=== PATIENT | male | born 1970 | race Caucasian/White ===

== ENCOUNTER → 2017-09-22 06:13 | Outpatient (CLI) | payer OTHER, SELFPAY ==
[2017-09-22 07:56] LABS: AST(SGOT) 56 U/L (15-37); Alanine Aminotransfer ALT/SGPT 107 U/L (16-61); Albumin, Serum 3.8 g/dL (3.2-5.0); Alkaline Phosphatase 81 U/L (45-117); Anion Gap 8 (5-15); BUN 20 mg/dL (7-18); BUN/Creat Ratio 16.5 RATIO (10-20); Calcium,Total 8.8 mg/dL (8.5-10.1); Chloride 108 mmol/L (98-107); Creatinine, Serum 1.21 mg/dL (0.70-1.30); EST Glomerular Filtration Rate 68 mL/min (>60); Est Glom Filt Rate - Afr Amer 82 mL/min (>60); Globulin 3.7 g/dL (2.2-4.2); Glucose 93 mg/dL (74-106); Prolactin 7.3 ng/mL; Protein, Total 7.5 g/dL (6.4-8.2); Sodium Level 144 mmol/L (136-145)
[2017-09-23 09:51] LABS: Vitamin D,25 Hydroxy 38.1 ng/mL (29.95-100.01)
[2017-09-25 20:08] LABS: Testosterone, Free 8.37 ng/dL (5.00-21.00)
[2017-09-28 12:51] LABS: Testosterone, % Free 3.11 % (1.50-4.20); Testosterone, Total 269 ng/dL (264-916)
== END ==
PROVIDERS: Family Provider Family Medicine; PCP Family Medicine; Visit Provider Internal Medicine Endocrinology, Diabetes & Metabolism
DX: E22.1 Hyperprolactinemia (principal); E55.9 Vitamin D deficiency, unspecified; E29.1 Testicular hypofunction
CPT/HCPCS: 36415; 80053; 82306; 84146; 84402; 84403

== ENCOUNTER → 2018-04-06 06:43 | Outpatient (CLI) | payer OTHER, SELFPAY ==
[2018-04-06 08:22] LABS: ALB/GLOB Ratio 0.9 RATIO (0.9-2.4); AST(SGOT) 72 U/L (15-37); Alanine Aminotransfer ALT/SGPT 136 U/L (16-61); Albumin, Serum 3.8 g/dL (3.2-5.0); Alkaline Phosphatase 78 U/L (45-117); Anion Gap 8 (5-15); BUN 18 mg/dL (7-18); BUN/Creat Ratio 15.1 RATIO (10-20); Calcium,Total 8.8 mg/dL (8.5-10.1); Chloride 106 mmol/L (98-107); Creatinine, Serum 1.19 mg/dL (0.70-1.30); EST Glomerular Filtration Rate 69 mL/min (>60); Est Glom Filt Rate - Afr Amer 83 mL/min (>60); Globulin 4.1 g/dL (2.2-4.2); Glucose 98 mg/dL (74-106); Potassium 4.2 mmol/L (3.5-5.1); Prolactin 12.1 ng/mL; Protein, Total 7.9 g/dL (6.4-8.2); Sodium Level 144 mmol/L (136-145); T4 Free Direct 0.89 ng/dL (0.76-1.46)
[2018-04-09 20:07] LABS: Testosterone, Free 10.57 ng/dL (5.00-21.00)
[2018-04-10 10:52] LABS: Testosterone, % Free 4.28 % (1.50-4.20); Testosterone, Total 247 ng/dL (264-916)
== END ==
PROVIDERS: Family Provider Family Medicine; PCP Family Medicine; Referring Provider Internal Medicine Endocrinology, Diabetes & Metabolism; Visit Provider Internal Medicine Endocrinology, Diabetes & Metabolism
DX: E22.1 Hyperprolactinemia (principal); R79.9 Abnormal finding of blood chemistry, unspecified; E29.1 Testicular hypofunction
CPT/HCPCS: 36415; 80053; 84146; 84402; 84403; 84439; 84443

== ENCOUNTER → 2018-11-05 10:14 | Outpatient (CLI) | payer OTHER, SELFPAY ==
[2017-12-11 16:04] VITALS: BMI 32.0
[2018-11-05 11:37] LABS: AST(SGOT) 53 U/L (15-37); Alanine Aminotransfer ALT/SGPT 104 U/L (16-61); Albumin, Serum 3.8 g/dL (3.2-5.0); Alkaline Phosphatase 92 U/L (45-117); Anion Gap 5 (5-15); BUN 16 mg/dL (7-18); BUN/Creat Ratio 14.2 RATIO (10-20); Calcium,Total 8.7 mg/dL (8.5-10.1); Chloride 106 mmol/L (98-107); Creatinine, Serum 1.13 mg/dL (0.70-1.30); EST Glomerular Filtration Rate 73 mL/min (>60); Est Glom Filt Rate - Afr Amer 88 mL/min (>60); Glucose 95 mg/dL (74-106); Potassium 4.1 mmol/L (3.5-5.1); Prolactin 12.4 ng/mL; Protein, Total 7.8 g/dL (6.4-8.2); Sodium Level 139 mmol/L (136-145); T4 Total, Thyroxin 7.5 ug/dL (4.5-12.1); Thyroid Stim Hormone (TSH) 0.95 uIU/mL (0.358-3.74)
[2018-11-10 09:07] LABS: Testosterone, Free 11.71 ng/dL (5.00-21.00)
[2018-11-10 11:04] LABS: Testosterone, % Free 3.97 % (1.50-4.20); Testosterone, Total 295 ng/dL (264-916)
== END ==
PROVIDERS: Family Provider Family Medicine; PCP Family Medicine; Referring Provider Internal Medicine Endocrinology, Diabetes & Metabolism; Visit Provider Internal Medicine Endocrinology, Diabetes & Metabolism
DX: E22.1 Hyperprolactinemia (principal); E29.1 Testicular hypofunction
CPT/HCPCS: 36415; 80053; 84146; 84402; 84403; 84436; 84443

== ENCOUNTER → 2019-06-10 06:34 | Outpatient (CLI) | payer OTHER, SELFPAY ==
[2017-12-11 16:04] VITALS: BMI 32.0
[2019-06-10 07:59] LABS: ALB/GLOB Ratio 0.9 RATIO (0.9-2.4); AST(SGOT) 60 U/L (15-37); Alanine Aminotransfer ALT/SGPT 126 U/L (16-61); Albumin, Serum 3.5 g/dL (3.2-5.0); Alkaline Phosphatase 82 U/L (45-117); Anion Gap 4 (5-15); BUN 14 mg/dL (7-18); BUN/Creat Ratio 11.1 RATIO (10-20); Chloride 105 mmol/L (98-107); Creatinine, Serum 1.26 mg/dL (0.70-1.30); EST Glomerular Filtration Rate 64 mL/min (>60); Est Glom Filt Rate - Afr Amer 78 mL/min (>60); Globulin 3.8 g/dL (2.2-4.2); Glucose 201 mg/dL (74-106); Potassium 4.2 mmol/L (3.5-5.1); Prolactin 7.6 ng/mL; Protein, Total 7.3 g/dL (6.4-8.2); Sodium Level 139 mmol/L (136-145); T4 Free Direct 0.79 ng/dL (0.76-1.46); Thyroid Stim Hormone (TSH) 1.56 uIU/mL (0.358-3.74)
== END ==
PROVIDERS: Family Provider Family Medicine; PCP Family Medicine; Referring Provider Internal Medicine Endocrinology, Diabetes & Metabolism; Visit Provider Internal Medicine Endocrinology, Diabetes & Metabolism
DX: E22.1 Hyperprolactinemia (principal); E04.2 Nontoxic multinodular goiter; D35.2 Benign neoplasm of pituitary gland; E83.42 Hypomagnesemia
CPT/HCPCS: 36415; 80053; 83735; 84146; 84439; 84443

== ENCOUNTER → 2020-01-23 06:45 | Outpatient (CLI) | payer OTHER, SELFPAY ==
[2017-12-11 16:04] VITALS: BMI 32.0
[2020-01-23 08:46] LABS: Vitamin D,25 Hydroxy 32.5 ng/mL
[2020-01-23 08:49] LABS: AST(SGOT) 37 U/L (15-37); Alanine Aminotransfer ALT/SGPT 80 U/L (16-61); Albumin, Serum 3.7 g/dL (3.2-5.0); Alkaline Phosphatase 82 U/L (45-117); Anion Gap 2 (5-15); BUN 17 mg/dL (7-18); BUN/Creat Ratio 13.3 RATIO (10-20); Calcium,Total 8.5 mg/dL (8.5-10.1); Chloride 108 mmol/L (98-107); Creatinine, Serum 1.28 mg/dL (0.70-1.30); EST Glomerular Filtration Rate 63 mL/min (>60); Est Glom Filt Rate - Afr Amer 76 mL/min (>60); Globulin 3.8 g/dL (2.2-4.2); Glucose 110 mg/dL (74-106); Potassium 3.9 mmol/L (3.5-5.1); Prolactin 12.3 ng/mL; Protein, Total 7.5 g/dL (6.4-8.2); Sodium Level 140 mmol/L (136-145)
[2020-01-23 08:51] LABS: Hemoglobin A1c 6.1 % (3.8-5.6)
== END ==
PROVIDERS: PCP Family Medicine; Referring Provider Internal Medicine Endocrinology, Diabetes & Metabolism; Visit Provider Internal Medicine Endocrinology, Diabetes & Metabolism
DX: E88.81 Metabolic syndrome and other insulin resistance (principal); Z71.3 Dietary counseling and surveillance; D35.2 Benign neoplasm of pituitary gland; E55.9 Vitamin D deficiency, unspecified; E22.1 Hyperprolactinemia
CPT/HCPCS: 36415; 80053; 82306; 83036; 84146

== ENCOUNTER → 2020-01-27 15:39 | Outpatient (CLI) | payer OTHER, SELFPAY ==
[2017-12-11 16:04] VITALS: BMI 32.0
== END ==
PROVIDERS: PCP Family Medicine; Referring Provider Family Medicine; Visit Provider Family Medicine
DX: Z20.828 Contact with and (suspected) exposure to other viral communicable diseases (principal)
CPT/HCPCS: 87635; U0003

== ENCOUNTER → 2020-02-20 08:19 | Outpatient (CLI) | payer OTHER, SELFPAY ==
[2017-12-11 16:04] VITALS: BMI 32.0
[2020-02-20 10:19] LABS: Anion Gap 3 (5-15); BUN 18 mg/dL (7-18); BUN/Creat Ratio 15.4 RATIO (10-20); Calcium,Total 8.8 mg/dL (8.5-10.1); Chloride 105 mmol/L (98-107); Cholesterol 158 mg/dL (200); Creatinine, Serum 1.17 mg/dL (0.70-1.30); EST Glomerular Filtration Rate 70 mL/min (>60); Est Glom Filt Rate - Afr Amer 84 mL/min (>60); Glucose 111 mg/dL (74-106); High Density Lipoprotein 37 mg/dL; Sodium Level 139 mmol/L (136-145); Triglycerides 151 mg/dL; Very Low Density Lipoprotein 30 mg/dL (5-40)
== END ==
PROVIDERS: PCP Family Medicine; Referring Provider Family Medicine; Visit Provider Family Medicine
DX: Z00.00 Encounter for general adult medical examination without abnormal findings (principal)
CPT/HCPCS: 36415; 80048; 80061

== ENCOUNTER → 2020-05-15 06:45 | Outpatient (CLI) | payer OTHER, SELFPAY ==
[2017-12-11 16:04] VITALS: BMI 32.0
[2020-05-15 07:55] LABS: AST(SGOT) 36 U/L (15-37); Alanine Aminotransfer ALT/SGPT 90 U/L (16-61); Albumin, Serum 3.8 g/dL (3.2-5.0); Alkaline Phosphatase 84 U/L (45-117); Anion Gap 6 (5-15); BUN 14 mg/dL (7-18); BUN/Creat Ratio 11.6 RATIO (10-20); Calcium,Total 8.8 mg/dL (8.5-10.1); Chloride 104 mmol/L (98-107); Creatinine, Serum 1.21 mg/dL (0.70-1.30); EST Glomerular Filtration Rate 67 mL/min (>60); Est Glom Filt Rate - Afr Amer 81 mL/min (>60); Glucose 114 mg/dL (74-106); Luteinizing Hormone 2.9 mIU/mL; Protein, Total 7.8 g/dL (6.4-8.2); Sodium Level 140 mmol/L (136-145); Thyroid Stim Hormone (TSH) 1.92 uIU/mL (0.358-3.74)
[2020-05-15 08:34] LABS: Insulin 21.4 mU/L (2.6-37.6)
[2020-05-18 12:07] LABS: Testosterone, Free 11.47 ng/dL (5.00-21.00)
[2020-05-18 12:52] LABS: Testosterone, % Free 4.36 % (1.50-4.20); Testosterone, Total 263 ng/dL (264-916)
== END ==
PROVIDERS: PCP Family Medicine; Referring Provider Internal Medicine Endocrinology, Diabetes & Metabolism; Visit Provider Internal Medicine Endocrinology, Diabetes & Metabolism
DX: E22.1 Hyperprolactinemia (principal); E04.9 Nontoxic goiter, unspecified; D35.2 Benign neoplasm of pituitary gland; E29.1 Testicular hypofunction
CPT/HCPCS: 36415; 80053; 83002; 83525; 84402; 84403; 84443

== ENCOUNTER → 2020-06-11 18:09 | Outpatient (CLI) | payer OTHER, SELFPAY ==
[2017-12-11 16:04] VITALS: BMI 32.0
== END ==
PROVIDERS: PCP Family Medicine; Referring Provider Family Medicine; Visit Provider Family Medicine
DX: U07.1 COVID-19 (principal)
CPT/HCPCS: 87635; U0005; U0003

== ENCOUNTER → 2020-08-27 06:43 | Outpatient (CLI) | payer OTHER, SELFPAY ==
[2020-08-27 07:51] LABS: AST(SGOT) 48 U/L (15-37); Alanine Aminotransfer ALT/SGPT 112 U/L (16-61); Albumin, Serum 3.8 g/dL (3.2-5.0); Alkaline Phosphatase 78 U/L (45-117); Anion Gap 3 (5-15); BUN 15 mg/dL (7-18); BUN/Creat Ratio 13.3 RATIO (10-20); Chloride 104 mmol/L (98-107); Creatinine, Serum 1.13 mg/dL (0.70-1.30); EST Glomerular Filtration Rate 72 mL/min (>60); Est Glom Filt Rate - Afr Amer 88 mL/min (>60); Globulin 3.7 g/dL (2.2-4.2); Glucose 131 mg/dL (74-106); Potassium 4.1 mmol/L (3.5-5.1); Prolactin 12.5 ng/mL; Protein, Total 7.5 g/dL (6.4-8.2); Sodium Level 137 mmol/L (136-145); T4 Free Direct 0.82 ng/dL (0.76-1.46); Thyroid Stim Hormone (TSH) 1.73 uIU/mL (0.358-3.74)
[2020-08-30 12:07] LABS: Testosterone, Free 13.32 ng/dL (5.00-21.00)
[2020-08-30 14:10] LABS: Testosterone, % Free 3.69 % (1.50-4.20); Testosterone, Total 361 ng/dL (264-916)
== END ==
PROVIDERS: PCP Family Medicine; Referring Provider Internal Medicine Endocrinology, Diabetes & Metabolism; Visit Provider Internal Medicine Endocrinology, Diabetes & Metabolism
DX: E22.1 Hyperprolactinemia (principal); E29.1 Testicular hypofunction
CPT/HCPCS: 36415; 80053; 84146; 84402; 84403; 84439; 84443

== ENCOUNTER → 2020-11-02 06:35 | Outpatient (CLI) | payer OTHER, SELFPAY ==
[2017-12-11 16:04] VITALS: BMI 32.0
[2020-11-02 08:42] LABS: Hemoglobin A1c 6.1 % (3.8-5.6)
[2020-11-02 08:46] LABS: Microalbumin,Random Urine 6.9 mg/L (NO RANGE EST.); Microalbumin:Creatinine Ratio 3.5 mg/g CRE (<30 mg/g CRE)
[2020-11-02 08:55] LABS: AST(SGOT) 40 U/L (15-37); Alanine Aminotransfer ALT/SGPT 87 U/L (16-61); Albumin, Serum 3.8 g/dL (3.2-5.0); Alkaline Phosphatase 83 U/L (45-117); Anion Gap 7 (5-15); BUN 22 mg/dL (7-18); BUN/Creat Ratio 19.3 RATIO (10-20); Calcium,Total 9.1 mg/dL (8.5-10.1); Chloride 101 mmol/L (98-107); Cholesterol 153 mg/dL (200); Creatinine, Serum 1.14 mg/dL (0.70-1.30); EST Glomerular Filtration Rate 72 mL/min (>60); Est Glom Filt Rate - Afr Amer 87 mL/min (>60); Globulin 3.9 g/dL (2.2-4.2); Glucose 93 mg/dL (74-106); High Density Lipoprotein 39 mg/dL; Potassium 3.7 mmol/L (3.5-5.1); Protein, Total 7.7 g/dL (6.4-8.2); Sodium Level 139 mmol/L (136-145); Triglycerides 157 mg/dL; Very Low Density Lipoprotein 31 mg/dL (5-40)
== END ==
PROVIDERS: Internal Medicine Endocrinology, Diabetes & Metabolism; PCP Family Medicine; Referring Provider Nurse Practitioner Adult Health; Visit Provider Nurse Practitioner Adult Health
DX: E11.65 Type 2 diabetes mellitus with hyperglycemia (principal)
CPT/HCPCS: 36415; 80053; 80061; 82043; 82570; 83036

== ENCOUNTER → 2021-01-08 06:45 | Outpatient (CLI) | payer OTHER, SELFPAY ==
[2017-12-11 16:04] VITALS: BMI 32.0
[2021-01-08 09:05] LABS: AST(SGOT) 34 U/L (15-37); Alanine Aminotransfer ALT/SGPT 72 U/L (16-61); Albumin, Serum 3.9 g/dL (3.2-5.0); Alkaline Phosphatase 84 U/L (45-117); Anion Gap 5 (5-15); BUN 17 mg/dL (7-18); BUN/Creat Ratio 15.6 RATIO (10-20); Chloride 104 mmol/L (98-107); Creatinine, Serum 1.09 mg/dL (0.70-1.30); EST Glomerular Filtration Rate 75 mL/min (>60); Est Glom Filt Rate - Afr Amer 91 mL/min (>60); Globulin 3.9 g/dL (2.2-4.2); Glucose 99 mg/dL (74-106); Potassium 3.9 mmol/L (3.5-5.1); Prolactin 13.1 ng/mL; Protein, Total 7.8 g/dL (6.4-8.2); Sodium Level 139 mmol/L (136-145)
[2021-01-14 03:06] LABS: Testosterone, Free 9.75 ng/dL (5.00-21.00)
[2021-01-14 08:46] LABS: Testosterone, % Free 3.93 % (1.50-4.20); Testosterone, Total 248 ng/dL (264-916)
== END ==
PROVIDERS: PCP Family Medicine; Referring Provider Internal Medicine Endocrinology, Diabetes & Metabolism; Visit Provider Internal Medicine Endocrinology, Diabetes & Metabolism
DX: E29.1 Testicular hypofunction (principal)
CPT/HCPCS: 36415; 80053; 84146; 84402; 84403

== ENCOUNTER → 2021-02-28 15:56 | Outpatient (CLI) | payer OTHER, SELFPAY ==
[2021-03-01 08:18] LABS: PSA,Total - Annual Screen < 4.00 ng/mL (0.00-4.00)
== END ==
PROVIDERS: PCP Family Medicine; Referring Provider Registered Nurse; Visit Provider Registered Nurse
DX: Z00.00 Encounter for general adult medical examination without abnormal findings (principal)
CPT/HCPCS: 36415; 84153; G0103

== ENCOUNTER → 2021-05-01 06:44 | Outpatient (CLI) | payer OTHER, SELFPAY ==
[2021-05-01 08:52] LABS: Hemoglobin A1c 6.1 % (3.8-5.6)
[2021-05-01 10:26] LABS: AST(SGOT) 39 U/L (15-37); Alanine Aminotransfer ALT/SGPT 84 U/L (16-61); Albumin, Serum 3.8 g/dL (3.2-5.0); Alkaline Phosphatase 83 U/L (45-117); Anion Gap 6 (5-15); BUN 17 mg/dL (7-18); BUN/Creat Ratio 14.4 RATIO (10-20); Calcium,Total 8.9 mg/dL (8.5-10.1); Chloride 104 mmol/L (98-107); Creatinine, Serum 1.18 mg/dL (0.70-1.30); EST Glomerular Filtration Rate 69 mL/min (>60); Est Glom Filt Rate - Afr Amer 83 mL/min (>60); Globulin 3.9 g/dL (2.2-4.2); Glucose 106 mg/dL (74-106); Luteinizing Hormone 3.4 mIU/mL; Magnesium 2.2 mg/dL (1.6-2.6); Potassium 4.1 mmol/L (3.5-5.1); Protein, Total 7.7 g/dL (6.4-8.2); Sodium Level 139 mmol/L (136-145)
[2021-05-05 17:07] LABS: Testosterone, Free 13.79 ng/dL (5.00-21.00)
[2021-05-06 08:58] LABS: Testosterone, % Free 4.96 % (1.50-4.20); Testosterone, Total 278 ng/dL (264-916)
== END ==
PROVIDERS: PCP Family Medicine; Referring Provider Internal Medicine Endocrinology, Diabetes & Metabolism; Visit Provider Internal Medicine Endocrinology, Diabetes & Metabolism
DX: E11.9 Type 2 diabetes mellitus without complications (principal); E29.1 Testicular hypofunction
CPT/HCPCS: 36415; 80053; 83002; 83036; 83735; 84402; 84403

== ENCOUNTER 2021-05-06 06:40 | Day surgery (SDC) | payer OTHER, SELFPAY ==
--- NOTE | 2021-05-06 | COLBX_PTH ---
PATIENT: LAURIE RIBEIRO LOC: EN U#:[id number] AGE/SX: 50/M ROOM: RE05/06/[address]: Dr. Christin Trevino MD : 1970 BED: DIS: 05/06/2021 SPEC #: [id number] RECD: 05/06/21 08:57 STATUS: SUNDAR REAlec #: [id number] CHERI: 05/06/21 00:[address]: Christin Trevino DEPT: SURGICAL PATHOLOGY RECD BY: Jose David Crawley ENTERED: 05/06/21 12:50 SP TYPE: COLON BX OTHR DR: Dr. Amanuel Aguilar MD Tissues: A - Ascending colon B - Transverse colon Procedures: Surgery Specimen Level IV HEADER OPERATION: Colonoscopy ? open access (MAC) PRE-OP DIAGNOSIS: Screening TISSUE SUBMITTED: A - Ascending polyp, B ? Transverse polyp biopsy MICROSCOPIC DIAGNOSIS A. Ascending colon polyp, biopsy: Tubular adenoma. B. Transverse colon polyp, biopsy: Tubular adenoma. AM:ady 05/07/2021 MICROSCOPIC DESCRIPTION Slides are reviewed. GROSS DESCRIPTION A - Received in fixative is one container labeled with the patient's name and designated ascending polyp biopsy. The specimen consists of multiple irregular fragments of light galicia soft tissue that in aggregate measure 1 x 0.2 x 0.1 cm. The specimen is totally submitted in one cassette. B - Received in fixative is one container labeled with the patient's name and designated transverse polyp biopsy. The specimen consists of one irregular fragment of light galicia soft tissue that measures 0.3 x 0.3 x 0.1 cm. The specimen is totally submitted in one cassette. / SJ:ady 05/06/21 TC:5 CPT: 09159 x2
[2021-05-06] MEDS: Lactated Ringers 1,000 ML 15 ML IV (06:50)
[2021-05-06 07:11] VITALS: BP 144/89; PULSE 82; RESP 16; TEMP 36.4; O2SAT 96; BMI 31.8
--- NOTE | 2021-05-06 07:11 | HP.PCM_ITS ---
HPI - General HPI Narrative LAURIE RIBEIRO, is a 50 M who presents for screening colonoscopy. Patient never had a previous colonoscopy. Patient's grandfather had colon cancer about age 60 no immediate relatives. Patient denies any chronic abdominal pain/nausea/vomiting/reflux. Patient does have bowel movements daily denies any blood. Patient does state he will does notice he has some hemorrhoids has not really had any issues with them recently in the past has had some itching-but patient states he is never had them looked at before. [facility] Medical History (Updated 05/06/21 @ 07:[address] Christin Trevino MD) Alcohol use Arthritis Back pain Benign neoplasm of pituitary gland Cardiology follow-up encounter CPAP (continuous positive airway pressure) dependence Diabetes Dietary restriction Fatty liver History of echocardiogram History of stress test Hx of pancreatitis Hyperprolactinemia Hypertension Hypogonadism Leg cramps Non-smoker Obesity Obstructive sleep apnea Paroxysmal atrial fibrillation Restless legs Wears glasses Home Medications calcium carbonate 500 mg calcium (1,250 mg) tablet 500 mg PO QDAY tab 11/27/17 [History Last Taken Unknown] cholecalciferol (vitamin D3) 125 mcg (5,000 unit) capsule 5,000 unit PO QDAY 11/27/17 [History Last Taken Unknown] magnesium oxide 500 mg capsule 500 mg PO QDAY cap 11/27/17 [History Last Taken Unknown] aspirin [Aspir-81] 81 mg PO DAILY 05/02/21 [History Last Taken Unknown] metformin 750 mg PO QPM 05/02/21 [History Last Taken Unknown] Allergy/AdvReac Type Severity Reaction Status Date / Time No Known Allergies Allergy Verified 05/02/21 15:41 Family History Father Heart disease Cancer prostate Mother Diabetes Cancer lung Surgical History (Updated 05/02/21 @ 15:49 by Aide Winston) Hx of cholecystectomy Social History Smoking Status: Never smoker Past Medical/Surgical History Planned Operation Planned Operative Procedure/s: CSCOPE OA S.O.S: No Previous Hospitalizations/Surgeries HX Hospitalizations: No Any Problems With Anesthesia: No You/Your Family Experience Fever (Hyperthermia) With Anes: No Cholinesterase deficiency: No Cardiovascular Hx Chest Pain within Last 2 months: No Hx of Irregular Heartbeat and/or Afib: Yes (A-FIB 04/25) Hx Heart Attack: No Hx Congestive Heart Failure: No Hx Rheumatic Fever: No Hx Hypertension: Yes (WITH PANCREATITIS 6 YRS AGO/RESOLVED AT THIS TIME/NO MEDS) Hx Internal Defibrillator: No Hx Pacemaker: No Hx Cardiac Catheterization: No Hx Cardiac Surgery/Stents/Etc.: No Hx Stress Test: No Hx Pain in Legs when Walking/Leg Cramps: Yes Respiratory Chronic Cough: No HX of Shortness of Breath: No Hoarseness: No Hx Chronic Obstructive Pulmonary Disease (COPD): No Hx Asthma: No Hx Emphysema: No Hx Sleep Apnea: Yes CPAP: Yes BIPAP: No Hx Respiratory Tract Infection/Cold (presently): No Result (for STOP score): Positive Hx Smoking: No Smoking Status: Never smoker Gastrointestinal Hx Gastroesophageal Reflux: No Hx Gastrointestinal Disorders: No Hx Gastrointestinal Bleed: No Hx Ulcer: No Hx Hiatal Hernia: No Difficulty Chewing/Swallowing: No Special diet followed at home: No Hx Unplanned Weight Loss of 20#: No HX Unplanned Weight Gain of 20#: No Neurological Hx Seizures: No HX Syncope/Blackout Spells/Unconsciousness: No Hx Transient Ischemic Attacks (TIA): No Hx Multiple Sclerosis: No Hx Parkinson's Disease: No Hx Head/Neck Injury: No Hx Headaches: No Hx Back Injury/Pain: Yes Recent Onset of Speech Difficulty: No Restless Legs: No Does patient have nerve stimulator: No Blood Disorder Hx Leukemia: No Bleeding Tendencies: No Hx Deep Vein Thrombosis: No Hx High Cholesterol: No Blood Transmitted Disease: No Hx Hepatitis: No Hx Cirrhosis: No Hx Anemia: No Hx Blood Disorders: No Reproduction : No Genitourinary Hx Renal Disease: No Musculoskeletal Hx Arthritis: No Hx Rheumatoid Arthritis: No Hx Gout: No Recent Onset of an Orthopedic Problem: No Endocrine Hx Diabetes: No Thyroid Disease: No Hx Steroid Therapy: No Psycho/Social Hx Substance Use: No Hx Alcohol Use: No Hx Anxiety: No Hx Depression: No Mental Illness: No Hx Dementia: No Miscellaneous Hx Cancer: No Recent Exposure to Contagious Disease: No Hx of C-Diff: No Any Loose Teeth: No Allergies No Known Allergies Allergy (Verified 05/02/21 15:41) Discharge Is Pt Admitted From a Alf, or a Care Home: No After D/C, Where Do you Plan to Go: Return Home Physical Exam Const alert, oriented x3 and no apparent distress HEENT normocephalic and head/scalp atraumatic Resp normal respiratory effort Cardio regular rate GI soft to palpation and non-tender; Negative for non-distended Palpation: Negative for guarding Extremity no clubbing, cyanosis or edema Neuro CN's II-XII intact bilaterally Psych mental status grossly normal Assessment & Plan Assessment/Plan (1) Screening for colon cancer: Procedure Criteria Type of Procedure Procedure Type: Elective Elective Risks - COVID COVID Risk Discussion: The surgeon/proceduralist and patient have discussed in detail the risk of exposure to and/or potential harm posed by the COVID-19 virus with having a surgery/procedure at this time versus the risk of delaying the surgery/procedure. It is not possible to know either the risk of delaying the surgery or procedure or chance of getting an infection with perfect accuracy, but a joint decision was made between the patient and the surgeon/proceduralist to proceed at this time with the scheduled surgery/procedure as indicated on the consent form. Surgery Risks - Colonoscopy Risks Include but are not Limited To: Risks include but are not limited to: Bleeding, perforation requiring further surgery, inability to complete colonoscopy requiring barium enema. Patient had no further questions this time.
[2021-05-06 08:05] LABS: Bedside Glucose 83 mg/dL (70-110)
[2021-05-06 08:40] VITALS: BP 131/82; BP 144/89; PULSE 67; RESP 16; TEMP 36.3; O2SAT 95
--- NOTE | 2021-05-06 08:43 | OP.COLON_ITS ---
Patient Name: Kev Almazan Procedure Date: 05/06/2021 8:07 AM Date of : 1970 Age: 50 Procedure: Colonoscopy Indications: Screening for colorectal malignant neoplasm Providers: Christin Trevino MD Medicines: Monitored Anesthesia Care Patient Profile: This is a 50 year old male. Last Colonoscopy: none. The patient's first colonoscopy is today. Complications: No immediate complications. Procedure: Pre-Anesthesia Assessment: - Prior to the procedure, a History and Physical was performed, and patient medications and allergies were reviewed. The patient's tolerance of previous anesthesia was also reviewed. The risks and benefits of the procedure and the sedation options and risks were discussed with the patient. All questions were answered, and informed consent was obtained. Prior Anticoagulants: The patient has taken no previous anticoagulant or antiplatelet agents. ASA Grade Assessment: Per anesthesia. After reviewing the risks and benefits, the patient was deemed in satisfactory condition to undergo the procedure. After I obtained informed consent, the scope was passed under direct vision. Throughout the procedure, the patient's blood pressure, pulse, and oxygen saturations were monitored continuously. The Colonoscope was introduced through the anus and advanced to the cecum, identified by appendiceal orifice and ileocecal valve. The colonoscopy was performed without difficulty. The patient tolerated the procedure well. The quality of the bowel preparation was good. Scope In: 8:15:53 AM Scope Withdrawal Time 0 hours 12 minutes 38 seconds Scope Out: 8:36:17 AM Total Procedure Duration Time 0 hours 20 minutes 24 seconds Findings: Hemorrhoids were found on perianal exam. Two sessile polyps were found in the transverse colon and ascending colon. The polyps were less than 5 mm in size. These polyps were removed with a cold biopsy forceps. Resection and retrieval were complete. External and internal hemorrhoids were found. The hemorrhoids were mild and Grade I (internal hemorrhoids that do not prolapse). Impression: - Hemorrhoids found on perianal exam. - Two less than 5 mm polyps in the transverse colon and in the ascending colon, removed with a cold biopsy forceps. Resected and retrieved. - External and internal hemorrhoids. Recommendation: - Repeat colonoscopy in 3 - 5 years for surveillance based on pathology results. - Discharge patient to home. - Resume previous diet. - Continue present medications. - Await pathology results. Procedure Code(s): --- Professional --- 60792, PT, Colonoscopy, flexible; with biopsy, single or multiple Diagnosis Code(s): --- Professional --- Z12.11, Encounter for screening for malignant neoplasm of colon K64.0, First degree hemorrhoids D12.3, Benign neoplasm of transverse colon (hepatic flexure or splenic flexure) D12.2, Benign neoplasm of ascending colon CPT copyright 2017 [employer]. All rights reserved. The codes documented in this report are preliminary and upon auto mechanic review may be revised to meet current compliance requirements. MD Christin Prabhakar MD 05/06/2021 8:42:47 AM This report has been signed electronically. Number of Addenda: 0 Note Initiated On: 05/06/2021 8:07 AM
--- NOTE | 2021-05-06 08:44 | OP.CCLET_ITS ---
05/06/2021 Amanuel Aguilar MD [address] [id number] Re : Colonoscopy procedure for Kev Almazan Dear Dr. Aguilar This procedure was performed on Thursday, May 06, 2021. My impressions and recommendations are as follows: Impressions : - Hemorrhoids found on perianal exam. - Two less than 5 mm polyps in the transverse colon and in the ascending colon, removed with a cold biopsy forceps. Resected and retrieved. - External and internal hemorrhoids. Recommendations : - Repeat colonoscopy in 3 - 5 years for surveillance based on pathology results. - Discharge patient to home. - Resume previous diet. - Continue present medications. - Await pathology results. My findings are described in the full procedure note, which is enclosed. If I can be of further assistance, please feel free to contact me at Doctor phone number(s): , Work: . Sincerely, MD Christin Prabhakar MD 05/06/2021 8:42:47 AM This report has been signed electronically.
[2021-05-06 08:45] VITALS: BP 133/77; BP 144/89; PULSE 67; RESP 16; O2SAT 94
[2021-05-06 08:50] VITALS: BP 135/83; BP 144/89; PULSE 64; RESP 16; O2SAT 94
[2021-05-06 08:55] VITALS: BP 131/79; BP 144/89; PULSE 65; RESP 16; TEMP 36.1; O2SAT 96
[2021-05-06 09:08] VITALS: BP 144/89
== END 2021-05-06 09:19 | disposition home or self-care (01) ==
LOC: EN 06:41 → AC 06:42
PROVIDERS: PCP Family Medicine; Referring Provider Family Medicine; Visit Provider Surgery
PROC: 0DJD8ZZ Inspection of Lower Intestinal Tract, Via Natural or Artificial Opening Endoscopic (ICD-10-PCS; CPT 45378; principal; 2021-05-06 08:10)
DX: Z12.11 Encounter for screening for malignant neoplasm of colon (principal); K64.0 First degree hemorrhoids; D12.3 Benign neoplasm of transverse colon; D12.2 Benign neoplasm of ascending colon; K64.4 Residual hemorrhoidal skin tags; Z80.0 Family history of malignant neoplasm of digestive organs; E11.9 Type 2 diabetes mellitus without complications; G47.33 Obstructive sleep apnea (adult) (pediatric); I48.0 Paroxysmal atrial fibrillation; I10 Essential (primary) hypertension; Z87.19 Personal history of other diseases of the digestive system; Z90.49 Acquired absence of other specified parts of digestive tract; G25.81 Restless legs syndrome; M19.90 Unspecified osteoarthritis, unspecified site; Z79.82 Long term (current) use of aspirin; Z79.84 Long term (current) use of oral hypoglycemic drugs
CPT/HCPCS: 45380; 82962; 87426; 88305; C9803; J7120; J2405

== ENCOUNTER 2021-07-30 07:49 | Outpatient (CLI) | payer OTHER, SELFPAY ==
--- NOTE | 2021-07-30 07:52 | ECHOD_ITS ---
Reason For Study: HTPERTENSION Procedure This was a 2D Doppler, Color Flow transthoracic echocardiogram. Exam performed in department. Left Ventricle Normal LV size. Left ventricular systolic function is normal. The estimated ejection fraction is 60 %. Stage 1 diastolic dysfunction. No regional wall motion abnormalities noted. Right Ventricle Normal RV size. Normal systolic function. Atria Normal left atrium. Normal right atrium. Mitral Valve Normal mitral valve. Tricuspid Valve Normal tricuspid valve. Mild tricuspid valve insufficiency. Pulmonary artery systolic pressure is 35 mmHg. Aortic Valve Normal aortic valve. Trisinus/trileaflet aortic valve. Pulmonic Valve Normal pulmonic valve. Great Vessels Normal aortic root. The pulmonary artery is normal size. Normal inferior vena cava. Pericardium/Pleural No pericardial effusion. MMode/2D Measurements & Calculations LVIDd: 4.1 cm IVSd: 0.97 cm Ao root diam: 3.0 cm LVIDs: 2.7 cm LVPWd: 0.93 cm RVDd: 4.0 cm FS: 33.4 % LAV(MOD-bp): 61.0 ml LA A4 area: 20.8 cm2 LA dimension(2D): 4.2 cm LAV(MOD-bp) Indexed: 24.0 ml/m2 LAV(MOD-sp2): 55.3 ml LAV(MOD-sp4): 60.0 ml RA A4 area: 13.6 cm2 Time Measurements MV dec time: 0.23 sec Doppler Measurements & Calculations MV E max ersnt: 76.4 cm/sec Lat Peak E' Ernst: 14.4 cm/sec Med Peak E' Ernst: 11.0 cm/sec MV A max ernst: 93.1 cm/sec E/E' lat: 5.3 E/E' med: 7.0 MV E/A: 0.82 Ao V2 max: 127.6 cm/sec LV V1 max: 105.0 cm/sec PA V2 max: 115.4 cm/sec Ao max P.5 mmHg LV V1 max P.4 mmHg TR max ernst: 279.7 cm/sec TR max P.3 mmHg ECHO/Echo Complete Interpretation Summary Normal LV size. Left ventricular systolic function is normal. The estimated ejection fraction is 60 %. Stage 1 diastolic dysfunction. Pulmonary artery systolic pressure is 35 mmHg. Ordering Physician: Benny Gore Referring Physician: Amanuel Aguilar Performed By: Tayler Lacey RDCS, RVT
== END 2021-07-30 23:59 | disposition home or self-care (01) ==
LOC: CVS 07:51
PROVIDERS: PCP Family Medicine; Referring Provider Internal Medicine Cardiovascular Disease; Visit Provider Internal Medicine Cardiovascular Disease
DX: I10 Essential (primary) hypertension (principal)
CPT/HCPCS: 93306

== ENCOUNTER 2021-08-19 06:44 | Outpatient (CLI) | payer OTHER, SELFPAY ==
[2021-08-19 08:37] LABS: AST(SGOT) 52 U/L (15-37); Alanine Aminotransfer ALT/SGPT 109 U/L (16-61); Albumin, Serum 3.9 g/dL (3.2-5.0); Alkaline Phosphatase 80 U/L (45-117); Anion Gap 4 (5-15); BUN 17 mg/dL (7-18); Calcium,Total 9.2 mg/dL (8.5-10.1); Chloride 103 mmol/L (98-107); Cholesterol 174 mg/dL (200); Creatinine, Serum 1.21 mg/dL (0.70-1.30); EST Glomerular Filtration Rate 67 mL/min (>60); Est Glom Filt Rate - Afr Amer 81 mL/min (>60); Globulin 3.8 g/dL (2.2-4.2); Glucose 116 mg/dL (74-106); High Density Lipoprotein 38 mg/dL; Potassium 4.1 mmol/L (3.5-5.1); Protein, Total 7.7 g/dL (6.4-8.2); Sodium Level 138 mmol/L (136-145); T4 Free Direct 0.91 ng/dL (0.76-1.46); Thyroid Stim Hormone (TSH) 2.41 uIU/mL (0.358-3.74); Triglycerides 221 mg/dL; Very Low Density Lipoprotein 44 mg/dL (5-40)
[2021-08-22 13:45] LABS: Testosterone Free 9.4 pg/mL (7.2-24.0)
== END 2021-08-19 23:59 | disposition home or self-care (01) ==
LOC: LAB 06:45
PROVIDERS: PCP Family Medicine; Referring Provider Internal Medicine Endocrinology, Diabetes & Metabolism; Visit Provider Internal Medicine Endocrinology, Diabetes & Metabolism
DX: E11.9 Type 2 diabetes mellitus without complications (principal); E22.1 Hyperprolactinemia; D35.2 Benign neoplasm of pituitary gland; E29.1 Testicular hypofunction
CPT/HCPCS: 36415; 80053; 80061; 83036; 84146; 84402; 84403; 84439; 84443

== ENCOUNTER → 2021-11-29 | Outpatient (CLI) | payer OTHER, SELFPAY ==
[2021-11-29 07:03] LABS: ALB/GLOB Ratio 0.9 RATIO (0.9-2.4); AST(SGOT) 50 U/L (15-37); Alanine Aminotransfer ALT/SGPT 111 U/L (16-61); Albumin, Serum 3.7 g/dL (3.2-5.0); Alkaline Phosphatase 78 U/L (45-117); Anion Gap 3 (5-15); BUN 19 mg/dL (7-18); BUN/Creat Ratio 15.2 RATIO (10-20); Calcium,Total 9.1 mg/dL (8.5-10.1); Chloride 106 mmol/L (98-107); Cholesterol 175 mg/dL (200); Creatinine, Serum 1.25 mg/dL (0.70-1.30); EST Glomerular Filtration Rate 64 mL/min (>60); Est Glom Filt Rate - Afr Amer 78 mL/min (>60); Globulin 3.9 g/dL (2.2-4.2); Glucose 110 mg/dL (74-106); High Density Lipoprotein 43 mg/dL; Protein, Total 7.6 g/dL (6.4-8.2); Sodium Level 139 mmol/L (136-145); Triglycerides 159 mg/dL; Very Low Density Lipoprotein 32 mg/dL (5-40)
[2021-11-29 07:43] LABS: Hemoglobin A1c 6.5 % (3.8-5.6)
== END | disposition home or self-care (01) ==
LOC: LAB 06:27
PROVIDERS: PCP Family Medicine; Visit Provider Internal Medicine Endocrinology, Diabetes & Metabolism
DX: E78.2 Mixed hyperlipidemia (principal); Z79.84 Long term (current) use of oral hypoglycemic drugs
CPT/HCPCS: 36415; 80053; 80061; 83036

== ENCOUNTER → 2022-01-09 | Outpatient (CLI) | payer OTHER, SELFPAY | END | disposition home or self-care (01) | LOC: LABSPEC 16:41 | PROVIDERS: PCP Family Medicine; Visit Provider Family Medicine | DX: U07.1 COVID-19 (principal) | CPT/HCPCS: 87635; U0003; U0005 ==

== ENCOUNTER → 2022-03-05 | Outpatient (CLI) | payer OTHER, SELFPAY ==
[2022-03-05 07:56] LABS: Hemoglobin A1c 6.8 % (3.8-5.6)
[2022-03-05 07:59] LABS: ALB/GLOB Ratio 0.9 RATIO (0.9-2.4); AST(SGOT) 42 U/L (15-37); Alanine Aminotransfer ALT/SGPT 94 U/L (16-61); Albumin, Serum 3.7 g/dL (3.2-5.0); Alkaline Phosphatase 78 U/L (45-117); Anion Gap 6 (5-15); BUN 17 mg/dL (7-18); BUN/Creat Ratio 15.2 RATIO (10-20); Calcium,Total 9.2 mg/dL (8.5-10.1); Chloride 103 mmol/L (98-107); Creatinine, Serum 1.12 mg/dL (0.70-1.30); EST Glomerular Filtration Rate 73 mL/min (>60); Est Glom Filt Rate - Afr Amer 88 mL/min (>60); Glucose 125 mg/dL (74-106); Potassium 3.9 mmol/L (3.5-5.1); Protein, Total 7.7 g/dL (6.4-8.2); Sodium Level 140 mmol/L (136-145)
== END | disposition home or self-care (01) ==
LOC: LAB 06:44
PROVIDERS: PCP Family Medicine; Visit Provider Internal Medicine Endocrinology, Diabetes & Metabolism
DX: Z79.84 Long term (current) use of oral hypoglycemic drugs (principal)
CPT/HCPCS: 36415; 80053; 83036

== ENCOUNTER → 2022-06-27 | Outpatient (CLI) | payer OTHER, SELFPAY ==
[2022-06-27 07:48] LABS: Hemoglobin A1c 6.3 % (3.8-5.6)
[2022-06-27 07:51] LABS: Microalbumin,Random Urine 9.1 mg/L (NO RANGE EST.); Microalbumin:Creatinine Ratio 5.2 mg/g CRE (<30 mg/g CRE)
[2022-06-27 08:02] LABS: ALB/GLOB Ratio 0.9 RATIO (0.9-2.4); AST(SGOT) 37 U/L (15-37); Alanine Aminotransfer ALT/SGPT 83 U/L (16-61); Albumin, Serum 3.7 g/dL (3.2-5.0); Alkaline Phosphatase 79 U/L (45-117); Anion Gap 6 (5-15); BUN 20 mg/dL (7-18); BUN/Creat Ratio 17.4 RATIO (10-20); Calcium,Total 8.9 mg/dL (8.5-10.1); Chloride 106 mmol/L (98-107); Cholesterol 160 mg/dL (200); Creatinine, Serum 1.15 mg/dL (0.70-1.30); EST Glomerular Filtration Rate 70 mL/min (>60); Est Glom Filt Rate - Afr Amer 85 mL/min (>60); Globulin 3.9 g/dL (2.2-4.2); Glucose 122 mg/dL (74-106); High Density Lipoprotein 39 mg/dL; Potassium 3.9 mmol/L (3.5-5.1); Prolactin 11.9 ng/mL; Protein, Total 7.6 g/dL (6.4-8.2); Sodium Level 142 mmol/L (136-145); Thyroid Stim Hormone (TSH) 1.33 uIU/mL (0.358-3.74); Triglycerides 141 mg/dL; Very Low Density Lipoprotein 28 mg/dL (5-40)
[2022-07-02 13:07] LABS: Testosterone, Free 10.78 ng/dL (5.00-21.00)
[2022-07-02 16:46] LABS: Testosterone, % Free 3.58 % (1.50-4.20); Testosterone, Total 301 ng/dL (264-916)
== END | disposition home or self-care (01) ==
PROVIDERS: PCP Family Medicine; Referring Provider Internal Medicine Endocrinology, Diabetes & Metabolism; Visit Provider Internal Medicine Endocrinology, Diabetes & Metabolism
DX: E78.2 Mixed hyperlipidemia (principal); Z79.84 Long term (current) use of oral hypoglycemic drugs; E04.2 Nontoxic multinodular goiter; E55.9 Vitamin D deficiency, unspecified
CPT/HCPCS: 36415; 80053; 80061; 82043; 82306; 82570; 83036; 84146; 84402; 84403; 84443

== ENCOUNTER → 2023-02-24 | Outpatient (CLI) | payer OTHER, SELFPAY ==
[2023-02-24 08:06] LABS: ALB/GLOB Ratio 0.9 RATIO (0.9-2.4); AST(SGOT) 28 U/L (15-37); Alanine Aminotransfer ALT/SGPT 78 U/L (16-61); Albumin, Serum 3.6 g/dL (3.2-5.0); Alkaline Phosphatase 82 U/L (45-117); Anion Gap 5 (5-15); BUN 17 mg/dL (7-18); Calcium,Total 8.8 mg/dL (8.5-10.1); Chloride 106 mmol/L (98-107); Creatinine, Serum 1.13 mg/dL (0.70-1.30); EST Glomerular Filtration Rate 72 mL/min (>60); Est Glom Filt Rate - Afr Amer 87 mL/min (>60); Globulin 3.9 g/dL (2.2-4.2); Glucose 138 mg/dL (74-106); Potassium 3.9 mmol/L (3.5-5.1); Protein, Total 7.5 g/dL (6.4-8.2); Sodium Level 140 mmol/L (136-145); Thyroid Stim Hormone (TSH) 1.91 uIU/mL (0.358-3.74)
== END | disposition home or self-care (01) ==
LOC: LAB 06:37
PROVIDERS: PCP Family Medicine; Referring Provider Internal Medicine Endocrinology, Diabetes & Metabolism; Visit Provider Internal Medicine Endocrinology, Diabetes & Metabolism
DX: Z79.84 Long term (current) use of oral hypoglycemic drugs (principal); E04.2 Nontoxic multinodular goiter
CPT/HCPCS: 36415; 80053; 83036; 84443

== ENCOUNTER → 2023-03-12 | Outpatient (CLI) | payer OTHER, SELFPAY ==
[2023-03-12 07:49] LABS: Cholesterol 159 mg/dL (200); High Density Lipoprotein 42 mg/dL; Triglycerides 155 mg/dL; Very Low Density Lipoprotein 31 mg/dL (5-40)
== END | disposition home or self-care (01) ==
LOC: LAB 06:43
PROVIDERS: PCP Family Medicine; Referring Provider Family Medicine; Visit Provider Family Medicine
DX: Z00.00 Encounter for general adult medical examination without abnormal findings (principal)
CPT/HCPCS: 36415; 80061

== ENCOUNTER → 2023-07-14 | Outpatient (CLI) | payer OTHER, SELFPAY ==
--- OUTSIDE RECORDS SUMMARY | 2023-07-14 06:16 | XMS RPT_ITS | CCD ---
Author Name Unknown Address [address] [place], [place] [id number] Organization [facility] Care Team Providers Care Machine Sign Writer Name Role Phone Nhung Soto Unavailable Unavailable Ashia Mcfarland Unavailable Unavailable Ashia Mcfarland Unavailable Unavailable Medications Completed/Discontinued Medications Medication Drug Class(es) Dates Sig (Normalized) Sig (Original) cabergoline 0.5 mg oral tablet (3 sources) Ergot Derivative CABERGOLINE 0.5 MG TABS one tab per month CABERGOLINE [id number] [place] calcium (1 source) Phosphate Binder, Calcium take 1 tablet by mouth once daily CALCIUM 1200 7911-0708 MG-UNIT CHEW One tablet by mouth daily CALCIUM CARBONATE-VIT D-MIN [id number] [place] CALCIUM CARBONATE-VIT D-MIN (2 sources) take 1 tablet by mouth once daily CALCIUM 1200 7453-6181 MG-UNIT CHEW One tablet by mouth daily CALCIUM CARBONATE-VIT D-MIN [id number] [place] cholecalciferol 5000 unt oral capsule (3 sources) Vitamin D take 1 tablet by mouth once daily VITAMIN D3 5000 UNIT CAPS One tablet by mouth daily CHOLECALCIFEROL 95242406019 [place] 24 hr dilTIAZem hydrochloride 240 mg extended release oral capsule (6 sources) Calcium Channel Julienne End: 05-29-2016 take 1 tablet by mouth once daily DILTIAZEM CD 240 MG [id number] One tablet by mouth daily DILTIAZEM HCL COATED BEADS [id number] [place] magnesium oxide 500 mg oral tablet (3 sources) take 1 tablet by mouth once daily MAGNESIUM OXIDE 500 MG TABS One tablet by mouth daily MAGNESIUM OXIDE [id number] [place] metoprolol tartrate 50 mg oral tablet (3 sources) beta-Adrenergic Julienne take 1 tablet by mouth twice daily METOPROLOL TARTRATE 50 MG TABS One tablet by mouth twice daily METOPROLOL TARTRATE [id number] Shekhar Castle MD Problems Active Problems Problem Classification Problem Date Documented Date Episodic/Chronic Cardiac dysrhythmias (6 sources) Paroxysmal atrial fibrillation; Translations: [Atrial fibrillation] Onset: 05-15-2016 05-15-2016 Chronic Essential hypertension (3 sources) Hypertensive disorder; Translations: [Essential (primary) hypertension] 05-06-2016 Chronic Other liver diseases (3 sources) Steatosis of liver; Translations: [Fatty (change of) liver, not elsewhere classified] Onset: 05-06-2016 05-06-2016 Chronic Unclassified (3 sources) Sleep apnea; Translations: [Sleep apnea, unspecified] Onset: 05-06-2016 05-06-2016 Chronic Unclassified (1 source) Laparoscopic cholecystectomy ; Translations: [Acquired absence of other specified parts of digestive tract] Onset: 06-12-2016 06-12-2016 Past or Other Problems Problem Classification Problem Date Documented Date Episodic/Chronic Biliary tract disease (3 sources) Gallstone; Translations: [Calculus of gallbladder without cholecystitis without obstruction] Onset: 05-06-2016 05-06-2016 Episodic Other lower respiratory disease (3 sources) Snoring; Translations: [Snoring] Onset: 05-15-2016 05-15-2016 Episodic Other nutritional; endocrine; and metabolic disorders (3 sources) Body mass index (BMI) 29.0-29.9, adult; Translations: [Body mass index (BMI) 29.0-29.9, adult] Onset: 05-15-2016 05-15-2016 Episodic Pancreatic disorders (3 sources) Gallstone pancreatitis; Translations: [Biliary acute pancreatitis] Onset: 05-06-2016 05-06-2016 Episodic Results Test Name Value Interpretation Reference Range Facil ity Vital Signs Date Time Vital Sign Value Performing Clinician Jc tan 11-11-2016 11:21-0400 BP Diastolic 70 mm[Hg] [facility] Work Phone: 11-11-2016 11:21-0400 BP Systolic 124 mm[Hg] [facility] Work Phone: 11-11-2016 11:21-0400 Pulse (Heart Rate) 72 /min [facility] Work Phone: 11-11-2016 11:21-0400 Respiratory Rate 18 /min Ashia Mcfarland [facility] Work Phone: 07-10-2016 09:06-0500 BMI (Body Mass Index) 28.93 kg/m2 Harhayley DeFinis [facility] Work Phone: 07-10-2016 09:06-0500 Body Temperature 98.1 [degF] Harumi DeFinis [facility] Work Phone: 07-10-2016 09:06-0500 BP Diastolic 86 mm[Hg] Harumi DeFinis [facility] Work Phone: 07-10-2016 09:06-0500 BP Systolic 123 mm[Hg] Harumi DeFinis [facility] Work Phone: 07-10-2016 09:06-0500 BSA (Body Surface Area) 2.44 m2 Harumi DeFinis [facility] Work Phone: 07-10-2016 09:06-0500 Height 195.58 cm Harumi DeFinis [facility] Work Phone: 07-10-2016 09:06-0500 Pulse (Heart Rate) 74 /min Harumi DeFinis [facility] Work Phone: 07-10-2016 09:06-0500 Pulse Oximetry 98 % Harumi DeFinis [facility] Work Phone: 07-10-2016 09:06-0500 Respiratory Rate 16 /min Harumi DeFinis [facility] Work Phone: 07-10-2016 09:06-0500 Weight 110.68 kg Harumi DeFinis [facility] Work Phone: 07-10-2016 09:06-0500 Weight 110.91 kg Harumi DeFinis [facility] Work Phone: 06-12-2016 09:00-0500 Body Temperature 98.01 [degF] Harumi DeFinis [facility] Work Phone: 05-15-2016 13:25-0500 Height 195.58 cm Harumi DeFinis [facility] Work Phone: Procedures Date Procedure Procedure Detail Performing Clinician Start: 07-10-2016 End: 07-10-2016 Dietary management education, guidance, and counseling Ashia Mcfarland Start: 06-12-2016 End: 06-12-2016 Follow Up Appt 2 weeks Christin Trevino MD Work Phone: Start: 06-12-2016 Laparoscopic cholecystectomy S/P laparoscopic cholecystectomy Ashia Mcfarland Start: 05-15-2016 End: 05-15-2016 *Hepatic Function Panel Shekhar Castle MD Work Phone: Start: 05-15-2016 End: 10-30-2016 DJN Shekhar Castle MD Work Phone: Start: 05-15-2016 End: 10-30-2016 Follow Up Appt 6 months Shekhar Castle MD Work Phone: Start: 05-15-2016 End: 05-15-2016 Lipid panel [AGGREGATE] Shekhar Castle MD Work Phone: Start: 05-15-2016 End: 05-21-2016 Stress Echocardiogram (treadmill) Shekhar Castle MD Work Phone: Start: 05-07-2016 End: 05-12-2016 *CBC with Differential Christin Trevino MD Work Phone: Start: 05-06-2016 End: 05-07-2016 *Hepatic Function Panel Christin velez MD Work Phone: Start: 05-06-2016 End: 05-06-2016 Follow Up Appt Other Christin Roberts Work Phone: Plan of Treatment Date Care Activity Detail Author Start: 11-09-2017 End: 11-09-2017 Appointment Appointment [facility] Work Phone: Start: 05-15-2017 End: 05-16-2016 *Hepatic Function Panel *Hepatic Function Panel [facility] Work Phone: Start: 05-15-2017 End: 05-16-2016 Lipid panel [AGGREGATE] *Lipid Profile CC PCP [facility] Work Phone: Start: 11-11-2016 End: 11-11-2016 Appointment Appointment [facility] Work Phone: Start: 11-11-2016 End: 11-11-2016 RANDA TOLENTINO [facility] Work Phone: Start: 11-11-2016 End: 11-11-2016 Follow Up Appt 1 year Follow Up Appt 1 year [facility] Work Phone: Start: 07-10-2016 End: 07-10-2016 Follow-up visit Follow Up as needed [facility] Work Phone: Start: 07-10-2016 End: 07-10-2016 Primary Care Physician Primary Care Physician Amanuel Mo MD, [facility], [address], [place], [address] [facility] Work Phone: Start: 06-26-2016 End: 06-26-2016 Follow Up Appt 2 weeks Follow Up Appt 2 weeks [facility] Work Phone: Start: 06-26-2016 End: 08-01-2016 Primary Care Physician Primary Care Physician Amanuel Mo MD, [facility], [address], [place], [address] [facility] Work Phone: Start: 06-12-2016 End: 06-12-2016 Follow Up Appt 2 weeks Follow Up Appt 2 weeks [facility] Work Phone: Start: 05-15-2016 End: 05-15-2016 *Hepatic Function Panel *Hepatic Function Panel [facility] Work Phone: Start: 05-15-2016 End: 10-30-2016 RANDA TOLENTINO [facility] Work Phone: Start: 05-15-2016 End: 10-30-2016 Follow Up Appt 6 months Follow Up Appt 6 months [facility] Work Phone: Start: 05-15-2016 End: 05-15-2016 Lipid panel [AGGREGATE] *Lipid Profile CC PCP [facility] Work Phone: Start: 05-15-2016 End: 05-15-2016 Stress Echocardiogram (treadmill) Stress Echocardiogram (treadmill) [facility] Work Phone: Start: 05-07-2016 End: 05-12-2016 *CBC with Differential *CBC with Differential [facility] Work Phone: Start: 05-06-2016 End: 05-07-2016 *Hepatic Function Panel *Hepatic Function Panel [employer] Work Phone: Start: 05-06-2016 End: 05-06-2016 Follow Up Appt Other Follow Up Appt Other [facility] Work Phone: Patient Education HEART%20HEALTHY%20DIET [facility] Work Phone: Additional Source Comments FOR RECORDS PERTAINING TO PATIENTS WHO ARE OR HAVE BEEN ENROLLED IN A CHEMICAL DEPENDENCY/SUBSTANCEABUSE PROGRAM, SOME INFORMATION MAY BE OMITTED. This clinical summary was aggregated from multiple sources. Caution should be exercised in using it in the provision of clinical care. This summary normalizes information from multiple sources, and as a consequence, information in this document may materially change the coding, format and clinical context of patient data. In addition, data may be omitted in some cases. CLINICAL DECISIONS SHOULD BE BASED ON THE PRIMARY CLINICAL RECORDS. [employer] [facility]. provides no warranty or guarantee of the accuracy or completeness of information in this document.
[2023-07-14 07:18] LABS: ALB/GLOB Ratio 0.9 RATIO (0.9-2.4); AST(SGOT) 35 U/L (15-37); Alanine Aminotransfer ALT/SGPT 76 U/L (16-61); Albumin, Serum 3.6 g/dL (3.2-5.0); Alkaline Phosphatase 89 U/L (45-117); Anion Gap 5 (5-15); BUN 18 mg/dL (7-18); BUN/Creat Ratio 16.7 RATIO (10-20); Chloride 109 mmol/L (98-107); Cholesterol 172 mg/dL (200); Creatinine, Serum 1.08 mg/dL (0.70-1.30); EST Glomerular Filtration Rate 75 mL/min (>60); Est Glom Filt Rate - Afr Amer 91 mL/min (>60); Globulin 3.8 g/dL (2.2-4.2); Glucose 146 mg/dL (74-106); High Density Lipoprotein 40 mg/dL; Potassium 4.3 mmol/L (3.5-5.1); Protein, Total 7.4 g/dL (6.4-8.2); Sodium Level 143 mmol/L (136-145); Triglycerides 186 mg/dL; Very Low Density Lipoprotein 37 mg/dL (5-40)
[2023-07-14 08:33] LABS: Hemoglobin A1c 6.8 % (3.8-5.6)
[2023-07-14 11:48] LABS: Microalbumin,Random Urine 7.7 mg/L (NO RANGE EST.); Microalbumin:Creatinine Ratio 5.2 mg/g CRE (<30 mg/g CRE)
== END | disposition home or self-care (01) ==
LOC: LAB 06:15
PROVIDERS: PCP Family Medicine; Referring Provider Internal Medicine Endocrinology, Diabetes & Metabolism; Visit Provider Internal Medicine Endocrinology, Diabetes & Metabolism
DX: E11.65 Type 2 diabetes mellitus with hyperglycemia (principal); E78.2 Mixed hyperlipidemia
CPT/HCPCS: 36415; 80053; 80061; 82043; 82570; 83036

== ENCOUNTER → 2023-08-06 | Outpatient (CLI) | payer OTHER, SELFPAY ==
--- OUTSIDE RECORDS SUMMARY | 2023-08-06 06:44 | XMS RPT_ITS | CCD ---
Author Name Unknown Address [address] [place], [place] [id number] Organization [facility] Care Team Providers Care Build Master Name Role Phone Nhung Soto Unavailable Unavailable Ashia Mcfarland Unavailable Unavailable Ashia Mcfarland Unavailable Unavailable Medications Completed/Discontinued Medications Medication Drug Class(es) Dates Sig (Normalized) Sig (Original) cabergoline 0.5 mg oral tablet (3 sources) Ergot Derivative CABERGOLINE 0.5 MG TABS one tab per month CABERGOLINE [id number] [place] calcium (1 source) Phosphate Binder, Calcium take 1 tablet by mouth once daily CALCIUM 1200 0306-3109 MG-UNIT CHEW One tablet by mouth daily CALCIUM CARBONATE-VIT D-MIN [id number] [place] CALCIUM CARBONATE-VIT D-MIN (2 sources) take 1 tablet by mouth once daily CALCIUM 1200 1294-4980 MG-UNIT CHEW One tablet by mouth daily CALCIUM CARBONATE-VIT D-MIN [id number] [place] cholecalciferol 5000 unt oral capsule (3 sources) Vitamin D take 1 tablet by mouth once daily VITAMIN D3 5000 UNIT CAPS One tablet by mouth daily CHOLECALCIFEROL [id number] [place] 24 hr dilTIAZem hydrochloride 240 mg extended release oral capsule (6 sources) Calcium Channel Julienne End: 05-29-2016 take 1 tablet by mouth once daily DILTIAZEM CD 240 MG [id number] One tablet by mouth daily DILTIAZEM HCL COATED BEADS 12089245041 [place] magnesium oxide 500 mg oral tablet (3 sources) take 1 tablet by mouth once daily MAGNESIUM OXIDE 500 MG TABS One tablet by mouth daily MAGNESIUM OXIDE 60893135489 [place] metoprolol tartrate 50 mg oral tablet (3 sources) beta-Adrenergic Julienne take 1 tablet by mouth twice daily METOPROLOL TARTRATE 50 MG TABS One tablet by mouth twice daily METOPROLOL TARTRATE [id number] Shekhar Castle MD Problems Active Problems Problem [...] tan 11-11-2016 11:21-0400 BP Diastolic 70 mm[Hg] [facility] Work Phone: 11-11-2016 11:21-0400 BP Systolic 124 mm[Hg] [facility] Work Phone: 11-11-2016 11:21-0400 Pulse (Heart Rate) 72 /min [facility] Work Phone: 11-11-2016 11:21-0400 Respiratory Rate 18 /min Ashia Mcfarland [facility] Work Phone: 07-10-2016 09:06-0500 BMI (Body Mass Index) 28.93 kg/m2 Harhayley DeFinis [facility] Work Phone: 07-10-2016 09:06-0500 Body Temperature 98.1 [degF] Harumi DeFinis [facility] Work Phone: 07-10-2016 09:06-0500 BP Diastolic 86 mm[Hg] Harumi DeFinis [facility] Work Phone: 07-10-2016 09:06-0500 BP Systolic 123 mm[Hg] Harumi DeFinis [facility] Work Phone: 07-10-2016 09:06-0500 BSA (Body Surface Area) 2.44 m2 Harumi DeFinis [facility] Work Phone: 07-10-2016 09:06-0500 Height 195.58 cm Harumi DeFinis [facility] Work Phone: 07-10-2016 09:06-0500 Pulse (Heart Rate) 74 /min Harumi DeFinis [facility] Work Phone: 07-10-2016 09:06-0500 Pulse Oximetry 98 % Harumi DeFinis [facility] Work Phone: 07-10-2016 09:06-0500 Respiratory Rate 16 /min Harumi DeFinis [facility] Work Phone: 07-10-2016 09:06-0500 Weight 110.68 kg Harumi DeFinis [facility] Work Phone: 07-10-2016 09:06-0500 Weight 110.91 kg Harumi DeFinis [facility] Work Phone: 06-12-2016 09:00-0500 Body Temperature 98.01 [degF] Harumi DeFinis [facility] Work Phone: 05-15-2016 13:25-0500 Height [...] Lipid panel [AGGREGATE] *Lipid Profile CC PCP [facility] Work Phone: Start: 11-11-2016 End: 11-11-2016 Appointment Appointment [facility] Work Phone: Start: 11-11-2016 End: 11-11-2016 RANDA TOLENTINO [facility] Work Phone: Start: 11-11-2016 End: 11-11-2016 Follow Up Appt 1 year Follow Up Appt 1 year [facility] Work Phone: Start: 07-10-2016 End: 07-10-2016 Follow-up visit Follow Up as needed [facility] Work Phone: Start: 07-10-2016 End: 07-10-2016 Primary Care Physician Primary Care Physician Amanuel Mo MD, [facility], [address], [place], [address] [facility] Work Phone: Start: 06-26-2016 End: 06-26-2016 Follow Up Appt 2 weeks Follow Up Appt 2 weeks [facility] Work Phone: Start: 06-26-2016 End: 08-01-2016 Primary Care Physician Primary Care Physician Amanuel Mo MD, [facility], [address], [place], [address] [facility] Work Phone: Start: 06-12-2016 End: 06-12-2016 Follow Up Appt 2 weeks Follow Up Appt 2 weeks [facility] Work Phone: Start: 05-15-2016 End: 05-15-2016 *Hepatic Function Panel *Hepatic Function Panel [facility] Work Phone: Start: 05-15-2016 End: 10-30-2016 RANDA TOLENTINO [facility] Work Phone: Start: 05-15-2016 End: 10-30-2016 Follow Up Appt 6 months Follow Up Appt 6 months [facility] Work Phone: Start: 05-15-2016 End: 05-15-2016 Lipid panel [AGGREGATE] *Lipid Profile CC PCP [facility] [employer] Work Phone: Start: 05-15-2016 End: 05-15-2016 Stress Echocardiogram (treadmill) Stress Echocardiogram (treadmill) [facility] Work Phone: Start: 05-07-2016 End: 05-12-2016 *CBC with Differential *CBC with Differential [facility] Work Phone: Start: 05-06-2016 End: 05-07-2016 *Hepatic Function Panel *Hepatic Function Panel [facility] Work Phone: Start: 05-06-2016 End: 05-06-2016 Follow Up Appt Other Follow Up Appt Other [facility] Work Phone: Patient Education HEART%20HEALTHY%20DIET [facility] Work Phone: Additional Source Comments FOR RECORDS [...] BE BASED ON THE PRIMARY CLINICAL RECORDS. [employer] [facility]. provides no warranty or guarantee of the accuracy or completeness of information in this document.
[2023-08-06 08:13] LABS: AST(SGOT) 39 U/L (15-37); Alanine Aminotransfer ALT/SGPT 82 U/L (16-61)
== END | disposition home or self-care (01) ==
LOC: LAB 06:42
PROVIDERS: PCP Family Medicine; Referring Provider Internal Medicine Endocrinology, Diabetes & Metabolism; Visit Provider Internal Medicine Endocrinology, Diabetes & Metabolism
DX: Z51.81 Encounter for therapeutic drug level monitoring (principal); Z79.84 Long term (current) use of oral hypoglycemic drugs
CPT/HCPCS: 36415; 84450; 84460

== ENCOUNTER → 2023-08-19 | Outpatient (CLI) | payer OTHER, SELFPAY ==
--- NOTE | 2023-08-19 14:47 | VDLE_ITS ---
Reason For Study: Right leg pain RIGHT GSV is normal. CFV is compressible, spontaneous, phasic, competent and demonstrates normal augmentation. FV is compressible, spontaneous, phasic, competent and demonstrates normal augmentation. POP V is compressible, spontaneous, phasic, competent and demonstrates normal augmentation. T/P Trunk is compressible. PTV is compressible. RT PerV is compressible. Acute superficial vein thrombosis is noted in the GSV prox thigh-knee. It is NONCOMPRESSIBLE. Thrombus filled varicose veins noted in the thigh and calf. Procedure This is a venous duplex using B-mode, color flow and spectral Doppler. Exam performed in department. A preliminary report was called and/or faxed to RN @ Dr. Aguilar office. VL/Venous Duplex US, Unilateral Interpretation Summary There is no evidence of right lower extremity deep vein thrombosis. Superficial thrombophlebitis right great saphenous vein from the proximal thigh to the knee Superficial thrombophlebitis varicosities right thigh and calf Ordering Physician: Amanuel Aguilar Referring Physician: Amanuel Aguilar Performed By: Meme Roland RVT
== END | disposition home or self-care (01) ==
LOC: CVS 14:43
PROVIDERS: PCP Family Medicine; Referring Provider Family Medicine; Visit Provider Family Medicine
DX: M79.606 Pain in leg, unspecified (principal); I80.01 Phlebitis and thrombophlebitis of superficial vessels of right lower extremity
CPT/HCPCS: 93971

== ENCOUNTER → 2023-08-27 | Outpatient (CLI) | payer OTHER, SELFPAY ==
[2023-08-27 08:03] LABS: AST(SGOT) 30 U/L (15-37); Alanine Aminotransfer ALT/SGPT 67 U/L (16-61)
== END | disposition home or self-care (01) ==
LOC: LAB 06:24
PROVIDERS: PCP Family Medicine; Referring Provider Internal Medicine Endocrinology, Diabetes & Metabolism; Visit Provider Internal Medicine Endocrinology, Diabetes & Metabolism
DX: E11.65 Type 2 diabetes mellitus with hyperglycemia (principal)
CPT/HCPCS: 36415; 84450; 84460

== ENCOUNTER → 2023-10-14 | Outpatient (CLI) | payer OTHER, SELFPAY ==
[2023-10-14 09:12] LABS: Hemoglobin A1c 6.8 % (3.8-5.6)
[2023-10-14 09:29] LABS: ALB/GLOB Ratio 0.9 RATIO (0.9-2.4); AST(SGOT) 36 U/L (15-37); Alanine Aminotransfer ALT/SGPT 75 U/L (16-61); Albumin, Serum 3.6 g/dL (3.2-5.0); Alkaline Phosphatase 82 U/L (45-117); Anion Gap 5 (5-15); BUN 20 mg/dL (7-18); BUN/Creat Ratio 18.9 RATIO (10-20); Calcium,Total 9.3 mg/dL (8.5-10.1); Chloride 106 mmol/L (98-107); Creatinine, Serum 1.06 mg/dL (0.70-1.30); EST Glomerular Filtration Rate 77 mL/min (>60); Est Glom Filt Rate - Afr Amer 93 mL/min (>60); Globulin 3.9 g/dL (2.2-4.2); Glucose 144 mg/dL (74-106); Potassium 4.2 mmol/L (3.5-5.1); Protein, Total 7.5 g/dL (6.4-8.2); Sodium Level 139 mmol/L (136-145); Thyroid Stim Hormone (TSH) 0.97 uIU/mL (0.358-3.74)
== END | disposition home or self-care (01) ==
LOC: LAB 06:46
PROVIDERS: PCP Family Medicine; Referring Provider Internal Medicine Endocrinology, Diabetes & Metabolism; Visit Provider Internal Medicine Endocrinology, Diabetes & Metabolism
DX: E04.2 Nontoxic multinodular goiter (principal); Z79.84 Long term (current) use of oral hypoglycemic drugs; E83.42 Hypomagnesemia
CPT/HCPCS: 36415; 80053; 83036; 83735; 84443

== ENCOUNTER → 2024-01-05 | Outpatient (CLI) | payer OTHER, SELFPAY ==
[2024-01-05 07:40] LABS: ALB/GLOB Ratio 0.9 RATIO (0.9-2.4); AST(SGOT) 36 U/L (15-37); Alanine Aminotransfer ALT/SGPT 73 U/L (16-61); Albumin, Serum 3.6 g/dL (3.2-5.0); Alkaline Phosphatase 93 U/L (45-117); Anion Gap 4 (5-15); BUN 15 mg/dL (7-18); BUN/Creat Ratio 13.5 RATIO (10-20); Chloride 106 mmol/L (98-107); Creatinine, Serum 1.11 mg/dL (0.70-1.30); EST Glomerular Filtration Rate 73 mL/min (>60); Est Glom Filt Rate - Afr Amer 88 mL/min (>60); Glucose 139 mg/dL (74-106); Potassium 4.1 mmol/L (3.5-5.1); Protein, Total 7.6 g/dL (6.4-8.2); Sodium Level 141 mmol/L (136-145)
== END | disposition home or self-care (01) ==
LOC: OLS.ABSOLU 06:20 → LAB 10:48
PROVIDERS: PCP Family Medicine; Referring Provider Physician Assistant; Visit Provider Physician Assistant
DX: E11.65 Type 2 diabetes mellitus with hyperglycemia (principal)
CPT/HCPCS: 36415; 80053; 83036

== ENCOUNTER → 2024-04-18 | Outpatient (CLI) | payer OTHER, SELFPAY ==
[2024-04-18 17:01] LABS: Hemoglobin A1c 7.3 % (3.8-5.6)
[2024-04-18 17:05] LABS: ALB/GLOB Ratio 1.1 RATIO (0.9-2.4); AST(SGOT) 36 U/L (15-37); Alanine Aminotransfer ALT/SGPT 85 U/L (16-61); Albumin, Serum 3.9 g/dL (3.2-5.0); Alkaline Phosphatase 82 U/L (45-117); Anion Gap 8 (5-15); BUN 20 mg/dL (7-18); BUN/Creat Ratio 17.7 RATIO (10-20); Calcium,Total 8.9 mg/dL (8.5-10.1); Chloride 104 mmol/L (98-107); Creatinine, Serum 1.13 mg/dL (0.70-1.30); EST Glomerular Filtration Rate 71 mL/min (>60); Est Glom Filt Rate - Afr Amer 86 mL/min (>60); Globulin 3.6 g/dL (2.2-4.2); Glucose 123 mg/dL (74-106); Potassium 4.1 mmol/L (3.5-5.1); Protein, Total 7.5 g/dL (6.4-8.2); Sodium Level 139 mmol/L (136-145)
== END | disposition home or self-care (01) ==
LOC: LAB 15:56
PROVIDERS: PCP Family Medicine; Referring Provider Internal Medicine Endocrinology, Diabetes & Metabolism; Visit Provider Internal Medicine Endocrinology, Diabetes & Metabolism
DX: E11.65 Type 2 diabetes mellitus with hyperglycemia (principal)
CPT/HCPCS: 36415; 80053; 83036

== ENCOUNTER → 2024-05-13 | Outpatient (CLI) | payer OTHER, SELFPAY ==
[2024-05-13 07:16] LABS: Anion Gap 4 (5-15); BUN 18 mg/dL (7-18); BUN/Creat Ratio 16.2 RATIO (10-20); Calcium,Total 9.2 mg/dL (8.5-10.1); Chloride 106 mmol/L (98-107); Cholesterol 175 mg/dL (200); Creatinine, Serum 1.11 mg/dL (0.70-1.30); EST Glomerular Filtration Rate 73 mL/min (>60); Est Glom Filt Rate - Afr Amer 88 mL/min (>60); Glucose 148 mg/dL (74-106); High Density Lipoprotein 40 mg/dL; Potassium 4.1 mmol/L (3.5-5.1); Sodium Level 141 mmol/L (136-145); Triglycerides 203 mg/dL; Very Low Density Lipoprotein 41 mg/dL (5-40)
== END | disposition home or self-care (01) ==
LOC: LAB 06:23
PROVIDERS: PCP Family Medicine; Referring Provider Family Medicine; Visit Provider Family Medicine
DX: Z00.00 Encounter for general adult medical examination without abnormal findings (principal)
CPT/HCPCS: 36415; 80048; 80061

== ENCOUNTER → 2024-10-25 | Outpatient (CLI) | payer OTHER, SELFPAY ==
[2024-10-25 08:44] LABS: Hemoglobin A1c 8.4 % (<=5.6)
[2024-10-25 08:45] LABS: ALB/GLOB Ratio 1.5 RATIO (0.9-2.4); AST(SGOT) 48 U/L (<=37); Alanine Aminotransfer ALT/SGPT 71 U/L (<=46); Albumin, Serum 4.4 g/dL (3.5-5.0); Alkaline Phosphatase 95 U/L (40-129); Anion Gap 11 (5-15); BUN 14 mg/dL (4-19); BUN/Creat Ratio 13.1 RATIO (10-20); Calcium,Total 9.2 mg/dL (7.6-11.0); Carbon Dioxide 27.7 mmol/L (21.0-32.0); Chloride 102 mmol/L (98-108); Cholesterol 121 mg/dL (<=200); Creatinine, Serum 1.08 mg/dL (0.70-1.20); EST Glomerular Filtration Rate 81 (>60); Glucose 152 mg/dL (70-99); High Density Lipoprotein 39 mg/dL; Low Density Lipoprotein Calc. 47 mg/dL; Potassium 4.2 mmol/L (3.3-5.1); Protein, Total 7.4 g/dL (5.9-8.4); Sodium Level 141 mmol/L (133-145); Total Bilirubin 0.77 mg/dL (0.00-1.30); Triglycerides 177 mg/dL; Very Low Density Lipoprotein 35 mg/dL (5-40)
== END | disposition home or self-care (01) ==
PROVIDERS: PCP Family Medicine; Referring Provider Internal Medicine Endocrinology, Diabetes & Metabolism; Visit Provider Internal Medicine Endocrinology, Diabetes & Metabolism
DX: E11.65 Type 2 diabetes mellitus with hyperglycemia (principal); E78.2 Mixed hyperlipidemia
CPT/HCPCS: 36415; 80053; 80061; 83036

== ENCOUNTER → 2025-01-31 | Outpatient (CLI) | payer OTHER, SELFPAY ==
--- OUTSIDE RECORDS SUMMARY | 2025-01-31 06:35 | XMS RPT_ITS | CCD ---
Author Organization [facility] Care Team Providers Care Legal Paraprofessional Name Role Phone Nhung Soto Unavailable Unavailable Mcfarland, Ashia M Unavailable Unavailable Ashia Mcfarland M Unavailable Unavailable Dr. Amanuel Aguilar Primary Care Provider Mayra, Dr. Vital Referring Provider Dr. Delta Clifton Attending Provider BENNY CLEVELAND DO Attending Unavailable MAYRA LYNOS, DR AMANUEL Santana Primary Care Unavailabl zully Aguilar MD, Dr. Vital Primary Care Provider Dr. Benny Cleveland DO Attending Provider Inez TORRES, Dr. Zapata Referring Provider Amanuel Aguilar Primary Care Unavailable Alexandra Oropeza Referring Unavailable Sandip, Alexandra Attending Unavailable Mayra, Amanuel Referring Unavailable Mayra, Amanuel Attending Unavailable Amanuel Aguilar Primary Care Unavailable Benny Cleveland Referring Unavailable Inez, Benny Attending Unavailable Amanuel Aguilar Primary Care Unavailable Benny Cleveland Referring Unavailable Benny Cleveland Attending Unavailable Mayra, Amanuel Primary Care Unavailable Medications Current Medications Medication Drug Class(es) Dates Sig (Normalized) Sig (Original) aspirin 81 mg delayed release oral tablet (10 sources) Platelet Aggregation Inhibitor, Nonsteroidal Anti-inflammatory Drug Start: 05-02-2021 take 1 tablet by mouth once daily Aspirin (Aspir-81) 81 mg Tablet,Delayed Release (Dr/Ec) Active 81 mg PO DAILY May 02, 2021 1:00am calcium carbonate 1250 mg oral tablet (10 sources) Start: 11-27-2017 take 1 tablet by mouth once daily Calcium Carbonate (Calcium 500) 500 mg calcium (1,250 mg) tablet Active 500 mg PO daily November 27, 2017 12:00am cholecalciferol 0.125 mg oral capsule (13 sources) Vitamin D Start: 11-27-2017 take 1 capsule by mouth once daily Cholecalciferol (Vitamin D3) 5,000 unit capsule Active 5000 U PO daily November 27, 2017 12:00am take 1 tablet by mouth once anjelica y VITAMIN D3 5000 UNIT CAPS One tablet by mouth daily CHOLECALCIFEROL [id number] [place] Claudio Kadeem magnesium oxide 500 mg oral capsule (13 sources) Start: 11-27-2017 take 1 capsule by mouth once daily Magnesium Oxide 500 mg capsule Active 500 mg PO daily November 27, 2017 12:00am take 1 tablet by mouth once anjelica y MAGNESIUM OXIDE 500 MG TABS One tablet by mouth daily MAGNESIUM OXIDE [id number] [place] Quan 24 hr metFORMIN hydrochloride 750 mg extended release oral tablet (10 sources) Biguanide Start: 05-02-2021 take 1 tablet by mouth once daily in the evening Metformin 750 mg Tablet Extended Release 24 Hr Active 750 mg PO EVERY EVENING May 02, 2021 1:00am Completed/Discontinued Medications Medication Drug Class(es) Dates Sig (Normalized) Sig (Original) acetaminophen 325 mg / HYDROcodone bitartrate 5 mg oral tablet (20 sources) Opioid Agonist Start: 05-29-2016 End: 11-27-2017 Hydrocodone-Acetami nophen 1 EACH tablet Discontinued 1 - 2 NMA PO EVERY 4 HOURS NEEDED as needed for Pain May 29, 2016 2:48pm November 27, 2017 8:57am Start: 05-29-2016 End: 11-27-2017 Hydrocodone-Acetaminophen Di scontinued 1 - 2 EACH PO EVERY 4 HOURS NEEDED May 29, 2016 2:48pm November 27, 2017 8:57am Start: 05-15-2016 End: 05-15-2016 Hydrocodone-Acetaminophen (N orco 5-325 Tablet) 1 EACH tablet Discontinued 1 - 2 NMA PO EVERY 4 HOURS NEEDED as needed for Pain May 15, 2016 12:22pm May 15, 2016 12:55pm cabergoline 0.5 mg oral tablet (3 sources) Ergot Derivative CABERGOLINE 0.5 MG TABS one tab per month CABERGOLINE [id number] [place] Quan calcium (1 source) Phosphate Binder, Calcium take 1 tablet by mouth once daily CALCIUM 1200 [id number] MG-UNIT CHEW One tablet by mouth daily CALCIUM CARBONATE-VIT D-MIN [id number] [place] Quan CALCIUM CARBONATE-VIT D-MIN (2 sources) take 1 tablet by mouth once daily CALCIUM 1200 7682-6130 MG-UNIT CHEW One tablet by mouth daily CALCIUM CARBONATE-VIT D-MIN [id number] [place] Quan 24 hr dilTIAZem hydrochloride 240 mg extended release oral capsule (16 sources) Calcium Channel Julienne Start: 6 End: 6 take 1 capsule by mouth once daily Diltiazem Hcl 240 MG capsule Discontinued 240 mg PO DAILY May 12, 2016 1:00am May 29, 2016 4:03pm metoprolol tartrate 50 mg oral tablet (20 sources) beta-Adrenergic Julienne Start: 8 End: 8 Metoprolol Tartrate 50 mg tablet Discontinued 25 mg PO TWICE A DAY November 27, 2017 10:12am December 11, 2017 3:39pm Start: 11-27-2017 End: 12-11-2017 take 25 mg by mouth twice daily Metoprolol Tartrate Di scontinued 25 MG PO TWICE A DAY November 27, 2017 10:12am December 11, 2017 3:39pm Start: 11-13-2017 End: 11-27-2017 take 1 tablet by mouth twice daily Metoprolol Tartrate 50 mg tablet Discontinued 50 mg PO TWICE A DAY 180 November 13, 2017 1:03pm November 27, 2017 10:12am Start: 05-12-2016 End: 11-13-2017 take 1 tablet by mouth twice daily Metoprolol Tartrate 100 MG tablet Discontinued 100 mg PO TWICE A DAY May 12, 2016 1:00am November 13, 2017 1:02pm take 1 tablet by arielle th twice daily METOPROLOL TARTRATE 50 MG TABS One tablet by mouth twice daily METOPROLOL TARTRATE [id number] Shekhar Castle MD Problems Active Problems Problem Classification Problem Date Documented Date Episodic/Chronic Cardiac dysrhythmias (16 sources) Paroxysmal atrial fibrillation; Translations: [Atrial fibrillation] Onset: 05-15-2016 05-15-2016 Chronic Comment on above: 2016 in the setting of pancreatitis. Diabetes mellitus with complications (1 source) Type 2 diabetes mellitus with hyperglycemia; Translations: [Type 2 diabetes mellitus with hyperglycemia] Onset: 10-31-2024 Chronic Diabetes mellitus without complication (10 sources) Type 2 diabetes mellitus; Translations: [Type 2 diabetes mellitus without complications] 07-06-2021 Chronic Essential hypertension (13 sources) Hypertensive disorder; Translations: [Essential hypertension] 05-06-2016 Chronic Other liver diseases (3 sources) Steatosis of liver; Translations: [Fatty (change of) liver, not elsewhere classified] Onset: 05-06-2016 05-06-2016 Chronic Other nutritional; endocrine; and metabolic disorders (10 sources) Obesity; Translations: [Obesity, unspecified] 11-27-2017 Chronic Other screening for suspected conditions (not mental disorders or infectious disease) (10 sources) Patient encounter status; Translations: [Encounter for screening for malignant neoplasm of colon] 07-06-2021 Episodic Pancreatic disorders (13 sources) Gallstone pancreatitis; Translations: [Biliary acute pancreatitis without necrosis or infection] Onset: 05-06-2016 05-06-2016 Episodic Unclassified (3 sources) Sleep apnea; Translations: [Sleep [...] (BMI) 29.0-29.9, adult] Onset: 05-15-2016 05-15-2016 Episodic Results Test Name Value Interpretation Reference Range Facility Anion gap in Serum or Plasma Ordered By: Benny Cleveland on 10-25-2024 Anion gap [Moles/Vol] 11 mmol/L 10-13 [facility] BUN/creatinine ratioOrdered By: Benny Cleveland on 10-25-2024 Urea nitrogen/Creatinine [Mass ratio] 13.1 mg/mg 03-20 [facility] Bilirubin, totalOrdered By: Benny Cleveland on 10-25-2024 Bilirubin [Mass/Vol] 0.77 mg/dL 0.00-1.30 [facility] Calculated very low density lipoprotein (VLDL) cholesterol measurementOrdered By: Benny Cleveland on 10-25-2024 Calculated very low density lipoprotein (VLDL) cholesterol measurement 35 mg/dL 5-40 [facility] Carbon dioxide, total [Moles /volume] in Central venous bloodOrdered By: Benny Cleveland on 10-25-2024 CO2 [Moles/Vol] 27.7 mmol/L 21.0-32.0 [facility] Chloride assayOrdered By: Pawan Cleveland on 10-25-2024 Chloride [Moles/Vol] 102 mmol/L 98-108 [facility] Comprehensive Metabolic Prof ilon 10-25-2024 Albumin [Mass/Vol] 4.4 g/dL Normal 3.5-5.0 [facility] Comment on above: Performed By: #### L 500.4100, L500.4050, L501.9985 #### [facility] [address] [place], [address] Albumin/Globulin [Mass ratio] 1.5 {ratio} Normal 0.9-2.4 [facility] Comment on above: Performed By: #### L 500.4100, L500.4050, [id number] #### [facility] [address] [place], [address] ALK PHOS 95 U/L Normal 40-129 [facility] Comment on above: Performed By: #### L 500.4100, L500.4050, [id number] #### [facility] [address] [place], [address] ALT [Catalytic activity/Vol] 71 U/L High <=46 [facility] Comment on above: Performed By: #### L 500.4100, L500.4050, [id number] #### [facility] [address] [place], [address] AST [Catalytic activity/Vol] 48 U/L High <=37 [facility] Comment on above: Performed By: #### L 500.4100, L500.4050, [id number] #### [facility] [address] [place], [address] Bilirubin [Mass/Vol] 0.77 mg/dL Normal 0.00-1.30 [facility] Comment on above: Performed By: #### L 500.4100, L500.4050, [id number] #### [facility] [address] [place], [address] BUN/CRE 13.1 RATIO Normal 10-20 [facility] Comment on above: Performed By: #### L 500.4100, L500.4050, [id number] #### [facility] [address] [place], [address] Calcium [Mass/Vol] 9.2 mg/dL Normal 7.6-11.0 [facility] Comment on above: Performed By: #### L 500.4100, L500.4050, [id number] #### [facility] [address] [place], [address] Chloride [Moles/Vol] 102 mmol/L Normal 98-108 [facility] Comment on above: Performed By: #### L 500.4100, L500.4050, [id number] #### [facility] [address] [place], [address] CO2 [Moles/Vol] 27.7 mmol/L Normal 21.0-32.0 [facility] Comment on above: Performed By: #### L 500.4100, L500.4050, [id number] #### [facility] [address] [place], [address] Creatinine [Mass/Vol] 1.08 mg/dL Normal 0.70-1.20 [facility] Comment on above: Performed By: #### L 500.4100, L500.4050, [id number] #### [facility] [address] [place], [address] GAP 11 Normal 5-15 [facility] Comment on above: Performed By: #### L 500.4100, L500.4050, [id number] #### [facility] [address] [place], [address] GFR/1.73 sq M.predicted among non-blacks MDRD (S/P/Bld) [Vol rate/Area] 81 mL/min/{1.73_m2} Normal >60 [facility] Comment on above: Result Comment: mL/m in/1.73m2 CKD-EPI Creatinine Equation (2020) Performed By: #### L 500.4100, L500.4050, [id number] #### [facility] [address] [place], [address] Globulin (S) [Mass/Vol] 3.0 g/dL Normal 2.2-4.2 [facility] Comment on above: Performed By: #### L 500.4100, L500.4050, [id number] #### [facility] [address] [place], [address] Glucose [Mass/Vol] 152 mg/dL High 70-99 [facility] Comment on above: Performed By: #### L 500.4100, L500.4050, [id number] #### [facility] [address] [place], [address] Potassium [Moles/Vol] 4.2 mmol/L Normal 3.3-5.1 [facility] Comment on above: Performed By: #### L 500.4100, L500.4050, [id number] #### [facility] [address] [place], [address] Sodium [Moles/Vol] 141 mmol/L Normal 133-145 [facility] Comment on above: Performed By: #### L 500.4100, L500.4050, [id number] #### [facility] [address] [place], [address] T PROT 7.4 g/dL Normal 5.9-8.4 [facility] Comment on above: Performed By: #### L 500.4100, L500.4050, [id number] #### [facility] [address] [place], [address] Urea nitrogen [Mass/Vol] 14 mg/dL Normal 4-19 [facility] Comment on above: Performed By: #### L 500.4100, L500.4050, [id number] #### [facility] [address] [place], [address] Glomerular filtration rate ( GFR) estimation/1.73 sq m using serum, plasma, or whole bOrdered By: Benny Cleveland on 10-25-2024 GFR/1.73 sq M.predicted among non-blacks MDRD (S/P/Bld) [Vol rate/Area] 81 mL/min/{1.73_m2} >60 [facility] Comment on above: mL/min/1.73m2 CKD-EP I Creatinine Equation (2020) Hemoglobin A1con 10-25-2024 HbA1c (Bld) [Mass fraction] 8.4 % High <=5.6 [facility] Comment on above: Result Comment: Norm al < 5.7 % Prediabetic 5.7 - 6.4 % Diabetic >or= 6.5 % Please note range changes. Performed By: #### L 500.4100, L500.4050, [id number] #### [facility] [address] [place], [address] Hemoglobin A1c percentageOrd ered By: Benny Cleveland on 10-25-2024 HbA1c (Bld) [Mass fraction] 8.4 % High <5.7 [facility] Comment on above: Normal < 5.7 % Predi abetic 5.7 - 6.4 % Diabetic >or= 6.5 % Please note range changes. LDL calc ser/plasOrdered By: Benny Cleveland on 10-25-2024 Cholesterol in LDL [Mass/Vol] 47 mg/dL [facility] Comment on above: Bgngqzvkvl=642-742 m g/dL & Higher Hahc=701 mg/dL or greater Laboratory - Chemistry and C hemistry - challengeOrdered By: Benny Cleveland on 10-25-2024 AST [Catalytic activity/Vol] 48 U/L High <38 [facility] Lipid Profileon 10-25-2024 CHOL:HDL 3.10 Normal [facility] Comment on above: Performed By: #### L 500.4100, L500.4050, [id number] #### [facility] [address] [facility] [place], [place], [id number] Cholesterol [Mass/Vol] 121 mg/dL Normal <=200 [facility] Comment on above: Result Comment: Chol esterol level, Desirable <200 mg/dL Borderline high cholesterol 200-239 mg/dL High cholesterol >=240 mg/dL Recommendations of the NCEP Adult Treatment Panel for the following risk-cutoff thresholds for the [place] population. Performed By: #### L 500.4100, L500.4050, [id number] #### [facility] [address] [place], [place], [id number] Cholesterol in HDL [Mass/Vol] 39 mg/dL Low [facility] Comment on above: Result Comment: Ammy onal Cholesterol Education Program (NCEP) guidelines: <40 mg/dL: Low HDL-cholesterol (major risk factor for CHD) >= 60 mg/dL: High HDL-cholesterol (negative risk factor for CHD) HDL-cholesterol is affected by a number of factors, e.g. smoking, exercise, hormones, sex and age. Performed By: #### L 500.4100, L500.4050, [id number] #### [facility] [address] [place], [address] Cholesterol in LDL [Mass/Vol] 47 mg/dL Normal [facility] Comment on above: Result Comment: Bord wivqmv=906-419 mg/dL Higher Hhet=741 mg/dL or greater Performed By: #### L 500.4100, L500.4050, [id number] #### [facility] [address] [place], [address] Cholesterol in VLDL [Mass/Vol] 35 mg/dL Normal 5-40 [facility] Comment on above: Performed By: #### L 500.4100, L500.4050, [id number] #### [facility] [address] [place], [address] Triglyceride [Mass/Vol] 177 mg/dL Normal [facility] Comment on above: Result Comment: The drugs N-Acetylcysteine and Metamizole may falsely depress this assay. Normal range: <150 mg/dL Borderline High: 150-199 mg/dL High: 200-499 mg/dL Very High: >500 mg/dL Performed By: #### L 500.4100, L500.4050, [id number] #### [facility] [address] [place], [address] Potassium measurement (mass/ volume)Ordered By: Benny Cleveland on 10-25-2024 Potassium (Unsp spec) [Mass/Vol] 4.2 mmol/L 3.3-5.1 [facility] Screening total cholesterol/ high density lipoprotein (HDL) cholesterol ratioOrdered By: Benny Cleveland on 10-25-2024 Cholesterol.total/Katy sterol in HDL [Mass ratio] 3.10 {ratio} [facility] Serum creatinine measurement (mass/volume)Ordered By: Benny Cleveland on 10-25-2024 Creatinine [Mass/Vol] 1.08 mg/dL 0.70-1.20 [facility] Serum globulin measurementOr dered By: Benny Cleveland on 10-25-2024 Globulin (S) [Mass/Vol] 3.0 g/dL 2.2-4.2 [facility] Serum glucose measurement (m ass/volume)Ordered By: Benny Cleveland on 10-25-2024 Glucose [Mass/Vol] 152 mg/dL High 70-99 [facility] Serum or plasma alanine olivia otransferase (ALT) measurementOrdered By: Benny Cleveland on 10-25-2024 ALT [Catalytic activity/Vol] 71 U/L High <47 [facility] Serum or plasma albumin leeanne urement (mass/volume)Ordered By: Benny Cleveland on 10-25-2024 Albumin [Mass/Vol] 4.4 g/dL 3.5-5.0 [facility] Serum or plasma albumin/glob ulin mass ratioOrdered By: Benny Cleveland on 10-25-2024 Albumin/Globulin [Mass ratio] 1.5 {ratio} 0.9-2.4 [facility] Serum or plasma alkaline alcon sphatase measurementOrdered By: Benny Cleveland on 10-25-2024 ALP [Catalytic activity/Vol] 95 U/L 40-129 [facility] Serum or plasma calcium leeanne urement (mass/volume)Ordered By: Benny Cleveland 10-25-2024 Calcium [Mass/Vol] 9.2 mg/dL 7.6-11.0 [facility] Serum or plasma cholesterol in HDL measurement (mass/volume)Ordered By: Benny Cleveland on 10-25-2024 Cholesterol in HDL [Mass/Vol] 39 mg/dL Low >40 [facility] Comment on above: National Cholesterol Education Program (NCEP) guidelines:<40 mg/dL: Low HDL-cholesterol (major risk factor for CHD)>= 60 mg/dL: High HDL-cholesterol (negative risk factor for CHD)HDL-cholesterol is affected by a number of factors, e.g. smoking, exercise, hormones, sex and age. Serum or plasma cholesterol measurement (mass/volume)Ordered By: Benny Cleveland on 10-25-2024 Cholesterol [Mass/Vol] 121 mg/dL <201 [facility] Comment on above: Cholesterol level, D esirable <200 mg/dLBorderline high cholesterol 200-239 mg/dLHigh cholesterol >=240 mg/dLRecommendations of the NCEP Adult Treatment Panel for the following risk-cutoff thresholds for the [place] population. Serum or plasma urea nitroge n measurement (mass/volume)Ordered By: Benny Cleveland on 10-25-2024 Urea nitrogen [Mass/Vol] 14 mg/dL 4-19 [facility] Sodium levelOrdered By: Leilani Cleveland on 10-25-2024 Sodium [Moles/Vol] 141 mmol/L 133-145 [facility] Total proteinOrdered By: Jefferson Cleveland on 10-25-2024 Protein [Mass/Vol] 7.4 g/dL 5.9-8.4 [facility] Triglycerides measurementOrd ered By: Benny Cleveland on 10-25-2024 Triglyceride [Mass/Vol] 177 mg/dL <199 [facility] Comment on above: The drugs N-Acetylcy steine and Metamizole may falsely depress this assay. Normal range: <150 mg/dLBorderline High: 150-199 mg/dLHigh: 200-499 mg/dLVery High: >500 mg/dL .GFRon 08-01-2024 Estimated Glomerular Filtration Rate 88 ml/min/1.73sqm Normal [facility] Comment on above: Result Comment: Stages of Chronic Kidney Disease (CKD) Stage Description eGFR(ml/min/1.73 sq.m.) CKD 1 Normal kidney function or >=90 normal kindney function with possible kidney damage (ex. Proteinuria) CKD 2 Kidney damage with mild loss 60-89 of kidney function CKD 3a Mild to moderate loss of kidney 45-59 function CKD 3b Moderate to severe loss of 30-44 of kindey function CKD 4 Severe loss of kidney function 15-29 CKD 5 Kidney failure <15 Note: (go live 2024) the eGFR calculation was updated to the 2020 CKD-EPI creatinine equation without a race factor to calculate the eGFR results. Performed By: #### G FR, TSH, CMP #### [facility] [address] [place] [address] CMPon 08-01-2024 Albumin Level 4.1 G/dL Normal 3.2-4.8 [facility] Comment on above: Performed By: #### G FR, TSH, CMP #### [address] [address] Albumin/Globulin [Mass ratio] 1.1 {ratio} Normal 0.9-1.6 [facility] Comment on above: Performed By: #### G FR, TSH, CMP #### [address] [address] ALP [Catalytic activity/Vol] 85 U/L Normal 38-126 [facility] Comment on above: Performed By: #### G FR, TSH, CMP #### [address] [address] ALT [Catalytic activity/Vol] 108 U/L High 12-55 [facility] Comment on above: Performed By: #### G FR, TSH, CMP #### [place] [id number] AST [Catalytic activity/Vol] 72 U/L High 8-34 [facility] Comment on above: Performed By: #### G FR, TSH, CMP #### [place] [id number] Bili Total 0.80 mg/dL Normal 0.20-1.20 [facility] Comment on above: Result Comment: Use of this assay is not recommended for patients undergoing treatment with eltrombopag due to the potential for falsely elevated results. Performed By: #### G FR, TSH, CMP #### [place] [id number] BUN/Creatinine Ratio 19.0 ratio Normal 10.0-22.0 [facility] Comment on above: Performed By: #### G FR, TSH, CMP #### [place] [id number] Calcium [Mass/Vol] 9.6 mg/dL Normal 8.7-10.4 [facility] Comment on above: Performed By: #### G FR, TSH, CMP #### [place] [id number] Chloride [Moles/Vol] 105 mmol/L Normal 98-110 [facility] Comment on above: Performed By: #### G FR, TSH, CMP #### [address] [address] CO2 [Moles/Vol] 30 mmol/L Normal 22-32 [facility] Comment on above: Performed By: #### G FR, TSH, CMP #### [address] [address] Creatinine [Mass/Vol] 1.00 mg/dL Normal 0.60-1.40 [facility] Comment on above: Result Comment: Test ing performed on [employer] analyzer using enzymatic creatinine methodology. Performed By: #### G FR, TSH, CMP #### [address] [address] Electrolyte Balance 6.0 mEq/L Normal 4.0-15.0 [facility] Comment on above: Performed By: #### G FR, TSH, CMP #### [address] [address] Globulin 3.7 G/dL Normal 1.5-3.8 [facility] Comment on above: Performed By: #### G FR, TSH, CMP #### [address] [address] Glucose [Mass/Vol] 133 mg/dL High 70-110 [facility] Comment on above: Performed By: #### G FR, TSH, CMP #### [address] [address] Potassium [Moles/Vol] 4.5 mmol/L Normal 3.5-5.0 [facility] Comment on above: Performed By: #### G FR, TSH, CMP #### [address] [address] Sodium [Moles/Vol] 141 mmol/L Normal 136-145 [facility] Comment on above: Performed By: #### G FR, TSH, CMP #### [address] [address] Total Protein 7.8 G/dL Normal 5.7-8.2 [facility] Comment on above: Performed By: #### G FR, TSH, CMP #### [address] [address] Urea nitrogen [Mass/Vol] 19.0 mg/dL Normal 8.0-22.0 [facility] Comment on above: Performed By: #### G FR, TSH, CMP #### [address] [address] MALBRon 08-01-2024 U Creatinine 144.7 mg/dL Normal [facility] Comment on above: Performed By: #### M ALBR #### [address] [address] U Microalb <3.0 Normal [facility] Comment on above: Performed By: #### M ALBR #### [place] [id number] U Ratio Alb/Cre Unable to Calculate Normal 0.0-30.0 [facility] Comment on above: Result Comment: Unab le to calculate this test result accurately. Results used to calculate this test are outside the reportable range. Performed By: #### M ALBR #### [place] [id number] TSHon 08-01-2024 TSH 1.515 mIU/mL Normal 0.550-4.780 [facility] Comment on above: Performed By: #### G FR, TSH, CMP #### [address] [address] Basic Metabolic Profile (BMP )on 05-13-2024 BUN/CRE 16.2 RATIO Normal 10-20 [facility] Comment on above: Performed By: #### L 500.4100, L500.2500 #### [facility] [address] [place], [place], [address] [phone] CA,Total 9.2 mg/dL Normal 8.5-10.1 [facility] Comment on above: Performed By: #### L 500.4100, L500.2500 #### [facility] [address] [place], [address] Chloride [Moles/Vol] 106 mmol/L Normal 98-107 [facility] Comment on above: Performed By: #### L 500.4100, L500.2500 #### [facility] [address] [place], [address] CO2 [Moles/Vol] 31.0 mmol/L Normal 21.0-32.0 [facility] Comment on above: Performed By: #### L 500.4100, L500.2500 #### [facility] [address] [place], [address] Creatinine [Mass/Vol] 1.11 mg/dL Normal 0.70-1.30 [facility] Comment on above: Result Comment: The validity of the calculated GFR GFRAA in patients over 70 years has not been determined. Clinical correlation is essential. Performed By: #### L 500.4100, L500.2500 #### [facility] [address] [place], [address] EST GFR - AA 88 mL/min Normal >60 [facility] Comment on above: Result Comment: Afri can Nauruan GFR Calc Performed By: #### L 500.4100, L500.2500 #### [facility] [address] [place], [address] GAP 4 Low 5-15 [facility] Comment on above: Performed By: #### L 500.4100, L500.2500 #### [facility] [address] [place], [address] GFR/1.73 sq M.predicted among non-blacks MDRD (S/P/Bld) [Vol rate/Area] 73 mL/min/{1.73_m2} Normal >60 [facility] Comment on above: Result Comment: Non- GFR Calc Performed By: #### L 500.4100, L500.2500 #### [facility] [address] [place], [address] Glucose [Mass/Vol] 148 mg/dL High 74-106 [facility] Comment on above: Result Comment: Fast ing Glucose result greater than or equal to 126 mg/dL suggests DIABETES MELLITUS per A.D.A. criteria. Performed By: #### L 500.4100, L500.2500 #### [facility] [address] [place], [address] Potassium [Moles/Vol] 4.1 mmol/L Normal 3.5-5.1 [facility] Comment on above: Performed By: #### L 500.4100, L500.2500 #### [facility] [address] [place], [address] Sodium [Moles/Vol] 141 mmol/L Normal 136-145 [facility] Comment on above: Performed By: #### L 500.4100, L500.2500 #### [facility] [address] [place], [address] Urea nitrogen [Mass/Vol] 18 mg/dL Normal 7-18 [facility] Comment on above: Performed By: #### L 500.4100, L500.2500 #### [facility] [address] [place], [address] Lipid Profileon 05-13-2024 Cholesterol [Mass/Vol] 175 mg/dL Normal 200 [facility] Comment on above: Result Comment: <200 mg/dL Desirable 200-240 mg/dL Borderline >240 mg/dL High Risk Performed By: #### L 500.4100, L500.2500 #### [facility] [address] [place], [address] Cholesterol in HDL [Mass/Vol] 40 mg/dL Normal [facility] Comment on above: Result Comment: The drugs N-Acetylcysteine and Metamizole may falsely depress this assay. Reference Range HDL <40 mg/dL Low HDL Cholesterol HDL >or= 60 mg/dL High HDL Cholesterol Performed By: #### L 500.4100, L500.2500 #### [facility] [address] [place], [address] Cholesterol in LDL [Mass/Vol] 94 mg/dL Normal 0-130 [facility] Comment on above: Performed By: #### L 500.4100, L500.2500 #### [facility] [address] [place], [address] Cholesterol in VLDL [Mass/Vol] 41 mg/dL High 5-40 [facility] Comment on above: Performed By: #### L 500.4100, L500.2500 #### [facility] [address] [place], [address] Triglyceride [Mass/Vol] 203 mg/dL High [facility] Comment on above: Result Comment: The drugs N-Acetylcysteine and Metamizole may falsely depress this assay. Serum Triglycerides Reference Interval Normal <150 mg/dL Borderline high 150 - 199 mg/dL High 200 - 499 mg/dL Very High > or = 500 mg/dL Performed By: #### L 500.4100, L500.2500 #### [facility] [address] [place], [address] Comprehensive Metabolic Prof [facility] 04-18-2024 Albumin [Mass/Vol] 3.9 g/dL Normal 3.2-5.0 [facility] Comment on above: Performed By: #### L 501.9985, L500.4050 #### [facility] [address] [place], [address] Albumin/Globulin [Mass ratio] 1.1 {ratio} Normal 0.9-2.4 [facility] Comment on above: Performed By: #### L 501.9985, L500.4050 #### [facility] [address] [place], [address] ALK P 82 U/L Normal 45-117 [facility] Comment on above: Performed By: #### L 501.9985, L500.4050 #### [facility] [address] [place], [address] ALT [Catalytic activity/Vol] 85 U/L High 16-61 [facility] Comment on above: Performed By: #### L 501.9985, L500.4050 #### [facility] [address] [place], [address] AST [Catalytic activity/Vol] 36 U/L Normal 15-37 [facility] Comment on above: Performed By: #### L 501.9985, L500.4050 #### [facility] [address] [place], [address] Bilirubin [Mass/Vol] 0.50 mg/dL Normal 0.20-1.00 [facility] Comment on above: Result Comment: For patients on eltrombopag therapy, use of Dimension [place] TBIL is not recommended. Performed By: #### L 501.9985, L500.4050 #### [facility] [address] [place], [address] BUN/CRE 17.7 RATIO Normal 10-20 [facility] Comment on above: Performed By: #### L 501.9985, L500.4050 #### [facility] [address] [place], [address] CA,Total 8.9 mg/dL Normal 8.5-10.1 [facility] Comment on above: Performed By: #### L 501.9985, L500.4050 #### [facility] [address] [place], [address] Chloride [Moles/Vol] 104 mmol/L Normal 98-107 [facility] Comment on above: Performed By: #### L 501.9985, L500.4050 #### [facility] [address] [place], [address] CO2 [Moles/Vol] 27.0 mmol/L Normal 21.0-32.0 [facility] Comment on above: Performed By: #### L 501.9985, L500.4050 #### [facility] [address] [place], [address] Creatinine [Mass/Vol] 1.13 mg/dL Normal 0.70-1.30 [facility] Comment on above: Result Comment: The validity of the calculated GFR GFRAA in patients over 70 years has not been determined. Clinical correlation is essential. Performed By: #### L 501.9985, L500.4050 #### [facility] [address] [place], [address] EST GFR - AA 86 mL/min Normal >60 [facility] Comment on above: Result Comment: Afri can Nauruan GFR Calc Performed By: #### L 501.9985, L500.4050 #### [facility] [address] [place], [address] GAP 8 Normal 5-15 [facility] Comment on above: Performed By: #### L 501.9985, L500.4050 #### [facility] [address] [place], [address] GFR/1.73 sq M.predicted among non-blacks MDRD (S/P/Bld) [Vol rate/Area] 71 mL/min/{1.73_m2} Normal >60 [facility] Comment on above: Result Comment: Non- GFR Calc Performed By: #### L 501.9985, L500.4050 #### [facility] [address] [place], [address] Globulin (S) [Mass/Vol] 3.6 g/dL Normal 2.2-4.2 [facility] Comment on above: Performed By: #### L 501.9985, L500.4050 #### [facility] [address] [place], [address] Glucose [Mass/Vol] 123 mg/dL High 74-106 [facility] Comment on above: Result Comment: Fast ing Glucose result from 100 to 125 mg/dL suggests IMPAIRED HOMEOSTASIS per A.D.A. criteria. Performed By: #### L 501.9985, L500.4050 #### [facility] [address] [place], [address] Potassium [Moles/Vol] 4.1 mmol/L Normal 3.5-5.1 [facility] Comment on above: Performed By: #### L 501.9985, L500.4050 #### [facility] [address] [place], [address] Sodium [Moles/Vol] 139 mmol/L Normal 136-145 [facility] Comment on above: Performed By: #### L 501.9985, [id number] #### [facility] [address] [place], [address] T PROT 7.5 g/dL Normal 6.4-8.2 [facility] Comment on above: Performed By: #### L 501.9985, L500.4050 #### [facility] [address] [place], [address] Urea nitrogen [Mass/Vol] 20 mg/dL High 12-16 [facility] Comment on above: Performed By: #### L 501.9985, [id number] #### [facility] [address] [place], [address] Hemoglobin A1con 04-18-2024 HbA1c (Bld) [Mass fraction] 7.3 % High 3.8-5.6 [facility] Comment on above: Result Comment: Norm al < 5.7 % Prediabetic 5.7 - 6.4 % Diabetic >or= 6.5 % Please note range changes. Performed By: #### L 501.9985, L500.4050 #### [facility] [address] [place], [address] Laboratory - Chemistry and C hemistry - challengeOrdered By: Benny Downstrey on 08-27-2023 ALT [Catalytic activity/Vol] 67 U/L [facility] Thin prep Papanicolaou smear with manual screeningOrdered By: Benny Downstrey on 08-27-2023 Thin prep Papanicolaou smear with manual screening 30 U/L [facility] Laboratory - Chemistry and C hemistry - challengeOrdered By: Benny Inez on 08-06-2023 ALT [Catalytic activity/Vol] 82 U/L [facility] Thin prep Papanicolaou smear with manual screeningOrdered By: Benny Inez on 08-06-2023 Thin prep Papanicolaou smear with manual screening 39 U/L [facility] Basophil percentageOrdered B y: Benny Inez on 07-14-2023 Bilirubin [Mass/Vol] 0.70 mg/dL 0.20-1.00 [facility] Comment on above: For patients on eltr ombopag therapy, use of Dimension [place] TBIL is not recommended. Chloride [Moles/Vol] 109 mmol/L 98-107 [facility] Cholesterol [Mass/Vol] 172 mg/dL <200 [facility] Comment on above: <200 mg/dL Desirable 200-240 mg/dL Borderline >240 mg/dL High Risk Glucose [Mass/Vol] 146 mg/dL 74-106 [facility] Comment on above: Fasting Glucose resu lt greater than or equal to 126 mg/dL suggests DIABETES MELLITUS per A.D.A. criteria. Potassium [Moles/Vol] 4.3 mmol/L 3.5-5.1 [facility] Protein [Mass/Vol] 7.4 g/dL 6.4-8.2 [facility] Sodium [Moles/Vol] 143 mmol/L 136-145 [facility] Triglyceride [Mass/Vol] 186 mg/dL <199 [facility] Comment on above: The drugs N-Acetylcy steine and Metamizole may falsely depress this assay.Serum Triglycerides Reference Interval Normal <150 mg/dL Borderline high 150 - 199 mg/dL High 200 - 499 mg/dL Very High > or = 500 mg/dL Laboratory - Chemistry and C hemistry - challengeOrdered By: Benny Cleveland on 07-14-2023 Albumin/Globulin [Mass ratio] 0.9 {ratio} 0.9-2.4 [facility] ALP [Catalytic activity/Vol] 89 U/L 45-117 [facility] ALT [Catalytic activity/Vol] 76 U/L 16-61 [facility] Cholesterol in HDL [Mass/Vol] 40 mg/dL >40 [facility] Comment on above: The drugs N-Acetylcy steine and Metamizole may falsely depress this assay. Reference Range HDL <40 mg/dL Low HDL Cholesterol HDL >or= 60 mg/dL High HDL Cholesterol Cholesterol in LDL [Mass/Vol] 95 mg/dL 0-130 [facility] CO2 [Moles/Vol] 29.0 mmol/L 21.0-32.0 [facility] Globulin (S) [Mass/Vol] 3.8 g/dL 2.2-4.2 [facility] Urea nitrogen/Creatinine [Mass ratio] 16.7 mg/mg 10-20 [facility] No Panel InformationOrdered By: Benny Cleveland on 07-14-2023 Estimated GFR (MDRD) Amer 91 mL/min >60 [facility] Comment on above: GFR Calc Estimated GFR (MDRD) Non-Af Amer 75 mL/min >60 [facility] Comment on above: Non- GFR Calc Urine Microalbumin/Creatinine Ratio 5.2 mg/g CRE <30 [facility] VLDL Cholesterol 37 mg/dL 5-40 [facility] Serum or plasma calcium leeanne urement (mass/volume)Ordered By: Benny Cleveland on 07-14-2023 Calcium [Mass/Vol] 9.0 mg/dL 8.5-10.1 [facility] Serum or plasma creatinine m easurement (mass/volume)Ordered By: Benny Cleveland on 07-14-2023 Creatinine [Mass/Vol] 1.08 mg/dL 0.70-1.30 [facility] Comment on above: The validity of the calculated GFR & GFRAA in patients over 70 years has not been determined. Clinical correlation is essential. Serum or plasma urea nitroge n measurement (mass/volume)Ordered By: Benny Cleveland on 07-14-2023 Urea nitrogen [Mass/Vol] 18 mg/dL 7-18 [facility] Thin prep Papanicolaou smear with manual screeningOrdered By: Benny Cleveland on 07-14-2023 Thin prep Papanicolaou smear with manual screening 3.6 g/dL 3.2-5.0 [facility] Thin prep Papanicolaou smear with manual screening 35 U/L 15-37 [facility] Thin prep Papanicolaou smear with manual screening 5 5-15 [facility] Thin prep Papanicolaou smear with manual screening 7.7 mg/L NO RANGE EST. [facility] Urine creatinine measurement (mass/volume)Ordered By: Benny Cleveland on 07-14-2023 Creatinine (U) [Mass/Vol] 148.00 mg/dL NO RANGE EST. [facility] Whole blood hemoglobin A1c/t otal hemoglobin ratio (mass fraction)Ordered By: Benny Cleveland on 07-14-2023 HbA1c (Bld) [Mass fraction] 6.8 % 3.8-5.6 [facility] Comment on above: Normal < 5.7 % Predi abetic 5.7 - 6.4 % Diabetic >or= 6.5 % Please note range changes. Basophil percentageOrdered B y: Amanuel Aguilar on 03-12-2023 Cholesterol [Mass/Vol] 159 mg/dL <200 [facility] Comment on above: <200 mg/dL Desirable 200-240 mg/dL Borderline >240 mg/dL High Risk Triglyceride [Mass/Vol] 155 mg/dL <199 [facility] Comment on above: The drugs N-Acetylcy steine and Metamizole may falsely depress this assay.Serum Triglycerides Reference Interval Normal <150 mg/dL Borderline high 150 - 199 mg/dL High 200 - 499 mg/dL Very High > or = 500 mg/dL Serum or plasma cholesterol in HDL measurement (mass/volume)Ordered By: Amanuel Aguilar on 03-12-2023 Cholesterol in HDL [Mass/Vol] 42 mg/dL >40 [facility] Comment on above: The drugs N-Acetylcy steine and Metamizole may falsely depress this assay. Reference Range HDL <40 mg/dL Low HDL Cholesterol HDL >or= 60 mg/dL High HDL Cholesterol Serum or plasma cholesterol in VLDL measurement (mass/volume)Ordered By: Amanuel Aguilar on 03-12-2023 Cholesterol in VLDL [Mass/Vol] 31 mg/dL 5-40 [facility] Serum or plasma low density lipoprotein (LDL) cholesterol measurement (mass/volume)Ordered By: Amanuel Aguilar on 03-12-2023 Cholesterol in LDL [Mass/Vol] 86 mg/dL 0-130 [facility] Basophil percentageOrdered B y: Benny Cleveland on 02-24-2023 Bilirubin [Mass/Vol] 0.50 mg/dL 0.20-1.00 [facility] Comment on above: For patients on eltr ombopag therapy, use of Dimension [place] TBIL is not recommended. Chloride [Moles/Vol] 106 mmol/L 98-107 [facility] Glucose [Mass/Vol] 138 mg/dL 74-106 [facility] Comment on above: Fasting Glucose resu lt greater than or equal to 126 mg/dL suggests DIABETES MELLITUS per A.D.A. criteria. Potassium [Moles/Vol] 3.9 mmol/L 3.5-5.1 [facility] Protein [Mass/Vol] 7.5 g/dL 6.4-8.2 [facility] Sodium [Moles/Vol] 140 mmol/L 136-145 [facility] Laboratory - Chemistry and C hemistry - challengeOrdered By: Benny Cleveland on 02-24-2023 ALP [Catalytic activity/Vol] 82 U/L 45-117 [facility] ALT [Catalytic activity/Vol] 78 U/L 16-61 [facility] CO2 [Moles/Vol] 29.0 mmol/L 21.0-32.0 [facility] Globulin (S) [Mass/Vol] 3.9 g/dL 2.2-4.2 [facility] Urea nitrogen/Creatinine [Mass ratio] 15.0 mg/mg 10-20 [facility] No Panel InformationOrdered By: Benny Cleveland on 02-24-2023 Estimated GFR (MDRD) Amer 87 mL/min >60 [facility] Comment on above: GFR Calc Estimated GFR (MDRD) Non-Af Amer 72 mL/min >60 [facility] Comment on above: Non- GFR Calc Thyroid Stimulating Hormone (TSH) 1.91 uIU/mL 0.358-3.74 [facility] Serum or plasma albumin leeanne urement (mass/volume)Ordered By: Benny Cleveland on 02-24-2023 Albumin [Mass/Vol] 3.6 g/dL 3.2-5.0 [facility] Serum or plasma albumin/glob ulin mass ratioOrdered By: Benny Cleveland on 02-24-2023 Albumin/Globulin [Mass ratio] 0.9 {ratio} 0.9-2.4 [facility] Serum or plasma calcium leeanne urement (mass/volume)Ordered By: Benny Cleveland on 02-24-2023 Calcium [Mass/Vol] 8.8 mg/dL 8.5-10.1 [facility] Serum or plasma creatinine m easurement (mass/volume)Ordered By: Benny Cleveland on 02-24-2023 Creatinine [Mass/Vol] 1.13 mg/dL 0.70-1.30 [facility] Comment on above: The validity of the calculated GFR & GFRAA in patients over 70 years has not been determined. Clinical correlation is essential. Serum or plasma urea nitroge n measurement (mass/volume)Ordered By: Benny Cleveland on 02-24-2023 Urea nitrogen [Mass/Vol] 17 mg/dL 7-18 [facility] Thin prep Papanicolaou smear with manual screeningOrdered By: Benny Cleveland on 02-24-2023 Thin prep Papanicolaou smear with manual screening 28 U/L 15-37 [facility] Thin prep Papanicolaou smear with manual screening 5 5-15 [facility] Whole blood hemoglobin A1c/t otal hemoglobin ratio (mass fraction)Ordered By: Benny Cleveland on 02-24-2023 HbA1c (Bld) [Mass fraction] 7.0 % 3.8-5.6 [facility] Comment on above: Normal < 5.7 % Predi abetic 5.7 - 6.4 % Diabetic >or= 6.5 % Please note range changes. Basophil percentageOrdered B y: Dr. Cleveland on 06-27-2022 Bilirubin [Mass/Vol] 0.60 mg/dL 0.20-1.00 [facility] Comment on above: For patients on eltr ombopag therapy, use of Dimension [place] TBIL is not recommended. Chloride [Moles/Vol] 106 mmol/L 98-107 [facility] Cholesterol [Mass/Vol] 160 mg/dL <200 [facility] Comment on above: <200 mg/dL Desirable 200-240 mg/dL Borderline >240 mg/dL High Risk Glucose [Mass/Vol] 122 mg/dL 74-106 [facility] Comment on above: Fasting Glucose resu lt from 100 to 125 mg/dL suggests IMPAIRED HOMEOSTASIS per A.D.A. criteria. Potassium [Moles/Vol] 3.9 mmol/L 3.5-5.1 [facility] Protein [Mass/Vol] 7.6 g/dL 6.4-8.2 [facility] Sodium [Moles/Vol] 142 mmol/L 136-145 [facility] Testosterone [Mass/Vol] 301 ng/dL 264-916 [facility] Comment on above: Adult male reference interval is based on a population ofhealthy nonobese males (BMI <30) between 19 and 39 yearsold. Zee et.al. JCEM 2017,102;4702-8306. PMID:[id number]. Triglyceride [Mass/Vol] 141 mg/dL <199 [facility] Comment on above: The drugs N-Acetylcy steine and Metamizole may falsely depress this assay.Serum Triglycerides Reference Interval Normal <150 mg/dL Borderline high 150 - 199 mg/dL High 200 - 499 mg/dL Very High > or = 500 mg/dL Free testosterone percentage Ordered By: Dr. Cleveland on 06-27-2022 Testosterone Free/Testosterone.total [Mass fraction] 3.58 % 1.50-4.20 [facility] Comment on above: Performed at: - [address] [id number] Director: Vu David PhD, Phone: [phone] at: - [facility] [address] [id number] Director: Eugene Lopez MD, Phone: [phone] Laboratory - Chemistry and C hemistry - challengeOrdered By: Dr. Cleveland on 06-27-2022 ALP [Catalytic activity/Vol] 79 U/L 45-117 [facility] ALT [Catalytic activity/Vol] 83 U/L 16-61 [facility] CO2 [Moles/Vol] 30.0 mmol/L 21.0-32.0 [facility] Globulin (S) [Mass/Vol] 3.9 g/dL 2.2-4.2 [facility] Urea nitrogen/Creatinine [Mass ratio] 17.4 mg/mg 10-20 [facility] No Panel InformationOrdered By: Dr. Cleveland on 06-27-2022 Estimated GFR (MDRD) Amer 85 mL/min >60 [facility] Comment on above: GFR Calc Estimated GFR (MDRD) Non-Af Amer 70 mL/min >60 [facility] Comment on above: Non- GFR Calc Thyroid Stimulating Hormone (TSH) 1.33 uIU/mL 0.358-3.74 [facility] Urine Microalbumin/Creatinine Ratio 5.2 mg/g CRE <30 [facility] Vitamin D 25-Hydroxy 59.0 ng/mL [facility] Comment on above: Vitamin D 25(OH) Sta tus Range Deficiency <20 ng/mL (50nmol/L) Insufficiency 20 - 30 ng/mL (50 - 75 nmol/L) Sufficiency 30 - 100 ng/mL (75 - 250 nmol/L) Toxicity >100 ng/mL (>250 nmol/L) Serum or plasma albumin leeanne urement (mass/volume)Ordered By: Dr. Cleveland on 06-27-2022 Albumin [Mass/Vol] 3.7 g/dL 3.2-5.0 [facility] Serum or plasma albumin/glob ulin mass ratioOrdered By: Dr. Cleveland on 06-27-2022 Albumin/Globulin [Mass ratio] 0.9 {ratio} 0.9-2.4 [facility] Serum or plasma calcium leeanne urement (mass/volume)Ordered By: Dr. Cleveland on 06-27-2022 Calcium [Mass/Vol] 8.9 mg/dL 8.5-10.1 [facility] Serum or plasma cholesterol in HDL measurement (mass/volume)Ordered By: Dr. Cleveland on 06-27-2022 Cholesterol in HDL [Mass/Vol] 39 mg/dL >40 [facility] Comment on above: The drugs N-Acetylcy steine and Metamizole may falsely depress this assay. Reference Range HDL <40 mg/dL Low HDL Cholesterol HDL >or= 60 mg/dL High HDL Cholesterol Serum or plasma cholesterol in VLDL measurement (mass/volume)Ordered By: Dr. Cleveland on 06-27-2022 Cholesterol in VLDL [Mass/Vol] 28 mg/dL 5-40 [facility] Serum or plasma creatinine m easurement (mass/volume)Ordered By: Dr. Cleveland on 06-27-2022 Creatinine [Mass/Vol] 1.15 mg/dL 0.70-1.30 [facility] Comment on above: The validity of the calculated GFR & GFRAA in patients over 70 years has not been determined. Clinical correlation is essential. Serum or plasma low density lipoprotein (LDL) cholesterol measurement (mass/volume)Ordered By: Dr. Cleveland on 06-27-2022 Cholesterol in LDL [Mass/Vol] 93 mg/dL 0-130 [facility] Serum or plasma prolactin me asurement (mass/volume)Ordered By: Dr. Cleveland on 06-27-2022 Prolactin [Mass/Vol] 11.9 ng/mL [facility] Comment on above: NORMAL REFERENCE RAN GES FEMALE NON- 2.2 - 30.3 ng/mL 8.1 - 347.6 ng/mL POST-MENOPAUSAL 0.7 - 31.5 ng/mL MALE 2.5 - 17.4 ng/mL Serum or plasma testosterone free measurement (mass/volume)Ordered By: Dr. Cleveland on 06-27-2022 Testosterone Free [Mass/Vol] 10.78 ng/dL 5.00-21.00 [facility] Serum or plasma urea nitroge n measurement (mass/volume)Ordered By: Dr. Cleveland on 06-27-2022 Urea nitrogen [Mass/Vol] 20 mg/dL 7-18 [facility] Thin prep Papanicolaou smear with manual screeningOrdered By: Dr. Clevelnad on 06-27-2022 Thin prep Papanicolaou smear with manual screening 37 U/L 15-37 [facility] Thin prep Papanicolaou smear with manual screening 6 5-15 [facility] Thin prep Papanicolaou smear with manual screening 9.1 mg/L NO RANGE EST. [facility] Urine creatinine measurement (mass/volume)Ordered By: Dr. Cleveland on 06-27-2022 Creatinine (U) [Mass/Vol] 177.00 mg/dL NO RANGE EST. [facility] Whole blood hemoglobin A1c/t otal hemoglobin ratio (mass fraction)Ordered By: Dr. Cleveland on 06-27-2022 HbA1c (Bld) [Mass fraction] 6.3 % 3.8-5.6 [facility] Comment on above: Normal < 5.7 % Predi abetic 5.7 - 6.4 % Diabetic >or= 6.5 % Please note range changes. Basophil percentageon 2021 Bilirubin [Mass/Vol] 0.90 mg/dL 0.20-1.00 [facility] Work Phone: Comment on above: For patients on eltr ombopag therapy, use of Dimension [place] TBIL is not recommended. Chloride [Moles/Vol] 103 mmol/L 98-107 [facility] Work Phone: Glucose [Mass/Vol] 125 mg/dL 74-106 [facility] Work Phone: Comment on above: Fasting Glucose resu lt from 100 to 125 mg/dL suggests IMPAIRED HOMEOSTASIS per A.D.A. criteria. Potassium [Moles/Vol] 3.9 mmol/L 3.5-5.1 [facility] Work Phone: Protein [Mass/Vol] 7.7 g/dL 6.4-8.2 [facility] Work Phone: Sodium [Moles/Vol] 140 mmol/L 136-145 [facility] Work Phone: Laboratory - Chemistry and C hemistry - challengeon 03-05-2022 ALP [Catalytic activity/Vol] 78 U/L 45-117 [facility] Work Phone: ALT [Catalytic activity/Vol] 94 U/L 16-61 [facility] Work Phone: CO2 [Moles/Vol] 31.0 mmol/L 21.0-32.0 [facility] Work Phone: Globulin (S) [Mass/Vol] 4.0 g/dL 2.2-4.2 [facility] Work Phone: Urea nitrogen/Creatinine [Mass ratio] 15.2 mg/mg 10-20 [facility] Work Phone: No Panel Informationon 03-05 Estimated GFR (MDRD) Amer 88 mL/min >60 [facility] Work Phone: Comment on above: GFR Calc Estimated GFR (MDRD) Non-Af Amer 73 mL/min >60 [facility] Work Phone: Comment on above: Non- GFR Calc Serum or plasma albumin leeanne urement (mass/volume)on 03-05-2022 Albumin [Mass/Vol] 3.7 g/dL 3.2-5.0 [facility] Work Phone: Serum or plasma albumin/glob ulin mass ratioon 03-05-2022 Albumin/Globulin [Mass ratio] 0.9 {ratio} 0.9-2.4 [facility] Work Phone: Serum or plasma calcium leeanne urement (mass/volume)on 03-05-2022 Calcium [Mass/Vol] 9.2 mg/dL 8.5-10.1 [facility] Work Phone: Serum or plasma creatinine m easurement (mass/volume)on 03-05-2022 Creatinine [Mass/Vol] 1.12 mg/dL 0.70-1.30 [facility] Work Phone: Comment on above: The validity of the calculated GFR & GFRAA in patients over 70 years has not been determined. Clinical correlation is essential. Serum or plasma urea nitroge n measurement (mass/volume)on 03-05-2022 Urea nitrogen [Mass/Vol] 17 mg/dL 7-18 [facility] Work Phone: Thin prep Papanicolaou smear with manual screeningon 03-05-2022 Thin prep Papanicolaou smear with manual screening 42 U/L 15-37 [facility] Work Phone: Thin prep Papanicolaou smear with manual screening 6 5-15 [facility] Work Phone: Whole blood hemoglobin A1c/t otal hemoglobin ratio (mass fraction)on 03-05-2022 HbA1c (Bld) [Mass fraction] 6.8 % 3.8-5.6 [facility] Work Phone: Comment on above: Normal < 5.7 % Predi abetic 5.7 - 6.4 % Diabetic >or= 6.5 % Please note range changes. Laboratory - Microbiology an d Antimicrobial susceptibilityon 01-09-2022 SARS-CoV-2 (COVID-19) RNA THALIA+probe Ql (Unsp spec) Detected Not Detect [facility] Work Phone: Comment on above: Normal Reference Ran ge: Not DetectedMethod:(RT-PCR) real-time reverse transcriptase PCRLuminex Unmetric Instrument*The Food and Drug Administration (FDA) has issued an Emergency Use Authorization (EAU) for the LEIA SARS-CoV-2 Assay for the rapid detection of the virus that causes COVID-19. This test has been validated, but the FDAs independent review of this validation is pending.*Negative results do not preclude infection and should not be used as the sole basis for treatment or patient management. Optimum specimen types and timing for peak viral levels during infections caused by SARS-CoV-2 have not been determined. Collection of multiple specimens from the same patient may be necessary to detect the virus. The possibility of a false negative result should be considered if the patient has clinical presentation or has had recent exposure. Basophil percentageon 2021 Bilirubin [Mass/Vol] 0.70 mg/dL 0.20-1.00 [facility] Work Phone: Comment on above: For patients on eltr ombopag therapy, use of Dimension [place] TBIL is not recommended. Chloride [Moles/Vol] 106 mmol/L 98-107 [facility] Work Phone: Cholesterol [Mass/Vol] 175 mg/dL <200 [facility] Work Phone: Comment on above: <200 mg/dL Desirable 200-240 mg/dL Borderline >240 mg/dL High Risk Glucose [Mass/Vol] 110 mg/dL 74-106 [facility] Work Phone: Comment on above: Fasting Glucose resu lt from 100 to 125 mg/dL suggests IMPAIRED HOMEOSTASIS per A.D.A. criteria. Potassium [Moles/Vol] 4.0 mmol/L 3.5-5.1 [facility] Work Phone: Protein [Mass/Vol] 7.6 g/dL 6.4-8.2 [facility] Work Phone: Sodium [Moles/Vol] 139 mmol/L 136-145 [facility] Work Phone: Triglyceride [Mass/Vol] 159 mg/dL <199 [facility] Work Phone: Comment on above: The drugs N-Acetylcy steine and Metamizole may falsely depress this assay.Serum Triglycerides Reference Interval Normal <150 mg/dL Borderline high 150 - 199 mg/dL High 200 - 499 mg/dL Very High > or = 500 mg/dL Laboratory - Chemistry and C hemistry - challengeon 11-29-2021 ALP [Catalytic activity/Vol] 78 U/L 45-117 [facility] Work Phone: ALT [Catalytic activity/Vol] 111 U/L 16-61 [facility] Work Phone: CO2 [Moles/Vol] 30.0 mmol/L 21.0-32.0 [facility] Work Phone: Globulin (S) [Mass/Vol] 3.9 g/dL 2.2-4.2 [facility] Work Phone: Urea nitrogen/Creatinine [Mass ratio] 15.2 mg/mg 10-20 [facility] Work Phone: No Panel Informationon 11-29 Estimated GFR (MDRD) Amer 78 mL/min >60 [facility] Work Phone: Comment on above: GFR Calc Estimated GFR (MDRD) Non-Af Amer 64 mL/min >60 [facility] Work Phone: Comment on above: Non- GFR Calc Serum or plasma albumin leeanne urement (mass/volume)on 11-29-2021 Albumin [Mass/Vol] 3.7 g/dL 3.2-5.0 [facility] Work Phone: Serum or plasma albumin/glob ulin mass ratioon 11-29-2021 Albumin/Globulin [Mass ratio] 0.9 {ratio} 0.9-2.4 [facility] Work Phone: Serum or plasma calcium leeanne urement (mass/volume)on 11-29-2021 Calcium [Mass/Vol] 9.1 mg/dL 8.5-10.1 [facility] Work Phone: Serum or plasma cholesterol in HDL measurement (mass/volume)on 11-29-2021 Cholesterol in HDL [Mass/Vol] 43 mg/dL >40 [facility] Work Phone: Comment on above: The drugs N-Acetylcy steine and Metamizole may falsely depress this assay. Reference Range HDL <40 mg/dL Low HDL Cholesterol HDL >or= 60 mg/dL High HDL Cholesterol Serum or plasma cholesterol in VLDL measurement (mass/volume)on 11-29-2021 Cholesterol in VLDL [Mass/Vol] 32 mg/dL 5-40 [facility] Work Phone: Serum or plasma creatinine m easurement (mass/volume)on 11-29-2021 Creatinine [Mass/Vol] 1.25 mg/dL 0.70-1.30 [facility] Work Phone: Comment on above: The validity of the calculated GFR & GFRAA in patients over 70 years has not been determined. Clinical correlation is essential. Serum or plasma low density lipoprotein (LDL) cholesterol measurement (mass/volume)on 11-29-2021 Cholesterol in LDL [Mass/Vol] 100 mg/dL 0-130 [facility] Work Phone: Serum or plasma urea nitroge n measurement (mass/volume)on 11-29-2021 Urea nitrogen [Mass/Vol] 19 mg/dL 7-18 [facility] Work Phone: Thin prep Papanicolaou smear with manual screeningon 11-29-2021 Thin prep Papanicolaou smear with manual screening 50 U/L 15-37 [facility] Work Phone: Thin prep Papanicolaou smear with manual screening 3 5-15 [facility] Work Phone: Whole blood hemoglobin A1c/t otal hemoglobin ratio (mass fraction)on 11-29-2021 HbA1c (Bld) [Mass fraction] 6.5 % 3.8-5.6 [facility] Work Phone: Comment on above: Normal < 5.7 % Predi abetic 5.7 - 6.4 % Diabetic >or= 6.5 % Please note range changes. Basophil percentageon 2021 Bilirubin [Mass/Vol] 0.70 mg/dL 0.20-1.00 [facility] Work Phone: Comment on above: For patients on eltr ombopag therapy, use of [employer] [place] TBIL is not recommended. Chloride [Moles/Vol] 103 mmol/L 98-107 [facility] Work Phone: Cholesterol [Mass/Vol] 174 mg/dL <200 [facility] Work Phone: Comment on above: <200 mg/dL Desirable 200-240 mg/dL Borderline >240 mg/dL High Risk Glucose [Mass/Vol] 116 mg/dL 74-106 [facility] Work Phone: Comment on above: Fasting Glucose resu lt from 100 to 125 mg/dL suggests IMPAIRED HOMEOSTASIS per A.D.A. criteria. Potassium [Moles/Vol] 4.1 mmol/L 3.5-5.1 [facility] Work Phone: Protein [Mass/Vol] 7.7 g/dL 6.4-8.2 [facility] Work Phone: Sodium [Moles/Vol] 138 mmol/L 136-145 [facility] Work Phone: Testosterone [Mass/Vol] 242.40 ng/dL [facility] Work Phone: Comment on above: CENTRAL 90% REFERENC E RANGES MALE AGE <50 197.44 - 669.58 ng/dL MALE AGE > or = 50 187.72 - 684.19 ng/dL FEMALE AGE <50 8.38 - 35.01 ng/dL FEMALE AGE > or = 50 <7.00 - 35.92 ng/dL Effective as of 12/25/20 Triglyceride [Mass/Vol] 221 mg/dL <199 [facility] Work Phone: Comment on above: The drugs N-Acetylcy steine and Metamizole may falsely depress this assay.Serum Triglycerides Reference Interval Normal <150 mg/dL Borderline high 150 - 199 mg/dL High 200 - 499 mg/dL Very High > or = 500 mg/dL Laboratory - Chemistry and C hemistry - challengeon 08-19-2021 ALP [Catalytic activity/Vol] 80 U/L 45-117 [facility] Work Phone: ALT [Catalytic activity/Vol] 109 U/L 16-61 [facility] Work Phone: CO2 [Moles/Vol] 31.0 mmol/L 21.0-32.0 [facility] Work Phone: Free T4 [Mass/Vol] 0.91 ng/dL 0.76-1.46 [facility] Work Phone: Globulin (S) [Mass/Vol] 3.8 g/dL 2.2-4.2 [facility] Work Phone: Urea nitrogen/Creatinine [Mass ratio] 14.0 mg/mg 10-20 [facility] Work Phone: No Panel Informationon 08-19 Estimated GFR (MDRD) Amer 81 mL/min >60 [facility] Work Phone: Comment on above: GFR Calc Estimated GFR (MDRD) Non-Af Amer 67 mL/min >60 [facility] Work Phone: Comment on above: Non- GFR Calc Thyroid Stimulating Hormone (TSH) 2.41 uIU/mL 0.358-3.74 [facility] Work Phone: Serum or plasma albumin leeanne urement (mass/volume)on 08-19-2021 Albumin [Mass/Vol] 3.9 g/dL 3.2-5.0 [facility] Work Phone: Serum or plasma albumin/glob ulin mass ratioon 08-19-2021 Albumin/Globulin [Mass ratio] 1.0 {ratio} 0.9-2.4 [facility] Work Phone: Serum or plasma calcium leeanne urement (mass/volume)on 08-19-2021 Calcium [Mass/Vol] 9.2 mg/dL 8.5-10.1 [facility] Work Phone: Serum or plasma cholesterol in HDL measurement (mass/volume)on 08-19-2021 Cholesterol in HDL [Mass/Vol] 38 mg/dL >40 [facility] Work Phone: Comment on above: The drugs N-Acetylcy steine and Metamizole may falsely depress this assay. Reference Range HDL <40 mg/dL Low HDL Cholesterol HDL >or= 60 mg/dL High HDL Cholesterol Serum or plasma cholesterol in VLDL measurement (mass/volume)on 08-19-2021 Cholesterol in VLDL [Mass/Vol] 44 mg/dL 5-40 [facility] Work Phone: Serum or plasma creatinine m easurement (mass/volume)on 08-19-2021 Creatinine [Mass/Vol] 1.21 mg/dL 0.70-1.30 [facility] Work Phone: Comment on above: The validity of the calculated GFR & GFRAA in patients over 70 years has not been determined. Clinical correlation is essential. Serum or plasma low density lipoprotein (LDL) cholesterol measurement (mass/volume)on 08-19-2021 Cholesterol in LDL [Mass/Vol] 92 mg/dL 0-130 [facility] Work Phone: Serum or plasma prolactin me asurement (mass/volume)on 08-19-2021 Prolactin [Mass/Vol] 13.0 ng/mL [facility] Work Phone: Comment on above: NORMAL REFERENCE RAN GES FEMALE NON- 2.2 - 30.3 ng/mL 8.1 - 347.6 ng/mL POST-MENOPAUSAL 0.7 - 31.5 ng/mL MALE 2.5 - 17.4 ng/mL Serum or plasma testosterone free measurement (mass/volume)on 08-19-2021 Testosterone Free [Mass/Vol] 9.4 pg/mL 7.2-24.0 [facility] Work Phone: Comment on above: Performed at: [employer] [facility] [employer] [id number] Director: Eugene Lopez MD, Phone: [phone] Serum or plasma urea nitroge n measurement (mass/volume)on 08-19-2021 Urea nitrogen [Mass/Vol] 17 mg/dL 7-18 [facility] Work Phone: Thin prep Papanicolaou smear with manual screeningon 08-19-2021 Thin prep Papanicolaou smear with manual screening 52 U/L 15-37 [facility] Work Phone: Thin prep Papanicolaou smear with manual screening 4 5-15 [facility] Work Phone: Whole blood hemoglobin A1c/t otal hemoglobin ratio (mass fraction)on 08-19-2021 HbA1c (Bld) [Mass fraction] 6.0 % 3.8-5.6 [facility] Work Phone: Comment on above: Normal < 5.7 % Predi abetic 5.7 - 6.4 % Diabetic >or= 6.5 % Please note range changes. Office Visiton 11-11-2016 Protein mass conc Done [facility] Work Phone: Office Visit: Follow up Chol ecystectomyon 07-10-2016 Dietary management education, guidance, and counseling (procedure) yes Invalid Interpretation Code [facility] Work Phone: [phone] Documentation of current medications (procedure) Done Invalid Interpretation Code [facility] Work Phone: [phone] Tobacco smoking status NHIS Never smoker [facility] Work Phone: [phone] Tobacco use CPHS Never smoker Invalid Interpretation Code [facility] Work Phone: [phone] Lab Report: Lipid Profileon 05-15-2016 Cholesterol 147 mg/dL 200 [facility] Work Phone: [phone] HDL Cholesterol 37 mg/dL Low [facility] Work Phone: [phone] LDL Cholesterol 82 mg/dL 0-130 [facility] Work Phone: [phone] Triglyceride 142 mg/dL [facility] Work Phone: [phone] very low density lipoproteins 28 mg/dL 5-40 [facility] Work Phone: [phone] Lab Report: Liver Profileon 05-15-2016 Alanine aminotransferase (ALT) 43 U/L 12-78 [facility] Work Phone: [phone] Albumin 3.3 g/dL Low 3.4-5.0 [facility] Work Phone: [phone] Alkaline phosphatase (ALP) 84 U/L Invalid Interpretation Code 45-117 [facility] Work Phone: [phone] ALP enzyme act/vol (Bld) 84 U/L 45-117 [facility] Work Phone: [phone] Aspartate aminotransferase (AST) 28 U/L 15-37 [facility] Work Phone: [phone] Bilirubin (direct) 0.15 mg/dL 0.00-0.30 [facility] Work Phone: [phone] Bilirubin (total) 0.60 mg/dL 0.20-1.00 [facility] Work Phone: [phone] Globulin 3.8 g/dL High 2.3-3.5 [facility] Work Phone: [phone] Globulin mass conc (S) 3.8 g/dL High 2.3-3.5 [facility] Work Phone: [phone] Protein 7.1 g/dL 6.4-8.2 [facility] Work Phone: [phone] Replaced Document: CBC W/Dif f, Automatedon 05-12-2016 Basophils/100 leukocytes 0.6 % Invalid Interpretation Code 0-1 [facility] Work Phone: [phone] Basophils/100 WBC (Bld) 0.6 % 0-1 [facility] Work Phone: [phone] Eosinophils/100 leukocytes 2.6 % Invalid Interpretation Code 0-5 [facility] Work Phone: [phone] Eosinophils/100 WBC (Bld) 2.6 % 0-5 [facility] Work Phone: [phone] Erythrocyte distribution width Ratio (RBC) 43.9 fL 35.1-43.9 [facility] Work Phone: [phone] Erythrocyte distribution width Ratio (RBC) 13.4 % 11.6-14.6 [facility] Work Phone: [phone] Erythrocytes (RBC) 4.79 10*6/uL Invalid Interpretation Code 4.6-6.2 [facility] Work Phone: [phone] Hematocrit (HCT) 42.6 % Invalid Interpretation Code 40-54 [facility] Work Phone: [phone] Hematocrit Volume Fraction (Bld) 42.6 % 40-54 [facility] Work Phone: [phone] Hemoglobin (HGB) 13.9 g/dL 13.0-16.5 [facility] Work Phone: [phone] Immature granulocytes #/vol (Bld) 0.100 % 0.0-0.9 [facility] Work Phone: [phone] immature granulocytes, percentage of total cells, blood 0.100 % Invalid Interpretation Code 0.0-0.9 [facility] Work Phone: [phone] Lymphocytes 1.60 X10 3/UL Invalid Interpretation Code 0.83-4.51 [facility] Work Phone: Lymphocytes #/vol (Bld) 1.60 X10 3/UL 0.83-4.51 [facility] Work Phone: [phone] Lymphocytes/100 leukocytes 16.3 % Low 19-41 [facility] Work Phone: [phone] Lymphocytes/100 WBC (Bld) 16.3 % Low 19-41 [facility] Work Phone: [phone] MCH 29.0 pg Invalid Interpretation Code 27.0-32.0 [facility] Work Phone: [phone] MCH Entitic mass (RBC) 29.0 pg 27.0-32.0 [facility] Work Phone: [phone] MCHC 32.6 G/GL Invalid Interpretation Code 32-36 [facility] Work [phone] MCHC mass conc (RBC) 32.6 G/GL 32-[address] [facility] Work Phone: [phone] MCV 88.9 fL Invalid Interpretation Code 80-94 [facility] Work Phone: [phone] MCV Entitic volume (RBC) 88.9 fL 80-94 [facility] Work Phone: [phone] Monocytes/100 leukocytes 6.0 % Invalid Interpretation Code 0-10 [facility] Work Phone: [phone] Monocytes/100 WBC (Bld) 6.0 % 0-10 [facility] Work Phone: [phone] neutrophil count, blood 7.3 X10 3/UL Invalid Interpretation Code 2.0-7.7 [facility] Work Phone: [phone] Neutrophils #/vol (Bld) 7.3 X10 3/UL 2.0-7.7 [facility] Work Phone: [phone] Neutrophils/100 leukocytes 74.4 % High 47-70 [facility] Work Phone: [phone] Neutrophils/100 WBC (Bld) 74.4 % High 47-70 [facility] Work Phone: [phone] Platelet mean volume Entitic volume (Bld) 9.2 fL 6.2-12.0 [facility] Work Phone: [phone] Platelets 308 10*3/mm3 Invalid Interpretation Code 150-450 [facility] Work Phone: [phone] Platelets #/vol (Bld) 308 10*3/mm3 150-450 [facility] Work Phone: [phone] PMV by Tyler 9.2 fL Invalid Interpretation Code 6.2-12.0 [facility] Work Phone: [phone] RBC #/vol (Bld) 4.79 10*6/uL 4.6-6.2 [facility] Work Phone: [phone] RDW-CA 13.4 % Invalid Interpretation Code 11.6-14.6 [facility] Work Phone: [phone] red blood cell distribution width, size density 43.9 fL Invalid Interpretation Code 35.1-43.9 [facility] Work Phone: [phone] WBC #/vol (Bld) 9.8 10*3/uL 4.4-11.0 [facility] Work Phone: [phone] WBC (Leukocytes) 9.8 10*3/uL Invalid Interpretation Code 4.4-11.0 [facility] Work Phone: [phone] Vital Signs Date Time Vital Sign Value Performing Clinician Jc tan 11-11-2016 11:21-0400 BP Diastolic 70 mm[Hg] Ashia Mcfarland [facility] Work Phone: 11-11-2016 11:21-0400 BP Systolic 124 mm[Hg] Ashia Mcfarland [facility] Work Phone: 11-11-2016 11:21-0400 Pulse (Heart Rate) 72 /min Ashia Mcfarland [facility] Work Phone: 11-11-2016 11:21-0400 Respiratory Rate 18 /min Ashia Mcfarland [facility] Work Phone: 07-10-2016 09:06-0500 BMI (Body Mass Index) 28.93 kg/m2 Ceciliohayley Soto [facility] Work Phone: 07-10-2016 09:06-0500 Body Temperature 98.1 [degF] Nhung DeFinbettye [facility] Work Phone: 07-10-2016 09:06-0500 BP Diastolic 86 mm[Hg] Harumi DeFinis [facility] Work Phone: 07-10-2016 09:06-0500 BP Systolic 123 mm[Hg] Nhung DeFinis [facility] Work Phone: 07-10-2016 09:06-0500 BSA (Body Surface Area) 2.44 m2 Nhung DeFinis [facility] Work Phone: 07-10-2016 09:06-0500 Height 195.58 cm Nhung DeFinis [facility] Work Phone: 07-10-2016 09:06-0500 Pulse (Heart Rate) 74 /min Harhayley DeFinis [facility] Work Phone: 07-10-2016 09:06-0500 Pulse Oximetry 98 % Nhung DeFinbettye [facility] Work Phone: 07-10-2016 09:06-0500 Respiratory Rate 16 /min Nhung DeFinbettye [facility] Work Phone: 07-10-2016 09:06-0500 Weight 110.68 kg Nhung DeFinbettye [facility] Work Phone: 07-10-2016 09:06-0500 Weight 110.91 kg Nhung DeFinbettye [facility] Work Phone: 06-12-2016 09:00-0500 Body Temperature 98.01 [degF] Nhung DeFinis [facility] Work Phone: 05-15-2016 13:25-0500 Height 195.58 cm Nhung DeFinbettye [facility] Work Phone: Encounters Encounter Date Encounter Type Care Provider Facility Start: 10-25-2024 End: 10-25-[address] Amanuel Aguilar MD Work Phone: [facility] Work Phone: Start: 10-25-2024 End: 10-25-[address] Benny Cleveland DO -Laboratory Work Phone: Start: 10-25-2024 End: 10-25-2024 ambulatory Benny Cleveland Facility:[facility] Start: 08-01-2024 End: 08-01-2024 ambulatory BENNY CLEVELAND DO Facility:A Start: 06-15-2024 Encounter for genera l adult medical examination without abnormal findings Amanuel Aguilar [facility] Start: 05-13-2024 End: 05-13-2024 ambulatory Amanuel Aguilar Facility:[facility] Start: 04-18-2024 End: 04-18-2024 ambulatory Benny Cleveland Facility:[facility] Start: 01-05-2024 End: 01-05-2024 ambulatory Amanuel Aguilar Facility:[facility] Start: 08-27-2023 End: 08-27-[address] Amanuel Aguilar Work Phone: [facility] Work Phone: Start: 08-27-2023 End: 08-27-[address] Amanuel Aguilar Work Phone: [facility] Work Phone: Start: 08-19-2023 Non-patient / Non-visit Dr. Anibal Aguilar Work Phone: [facility] Start: 08-19-2023 End: 08-19-[address] Amanuel Aguilar Work Phone: [facility] Work Phone: Start: 08-19-2023 End: 08-19-[address] Amanuel Aguilar Work Phone: [facility] Work Phone: Start: 08-06-2023 End: 08-06-2023 ambulatory [facility] Work Phone: Start: 08-06-2023 End: 08-06-2023 Patient encounter procedure [facility] Work Phone: Start: 07-14-2023 End: 07-14-2023 ambulatory [facility] Work Phone: Start: 07-14-2023 End: 07-14-2023 Patient encounter procedure [facility] Work Phone: Start: 03-12-2023 End: 03-12-2023 ambulatory [facility] Work Phone: Start: 03-12-2023 End: 03-12-2023 Patient encounter procedure [facility] Work Phone: Start: 02-24-2023 End: 02-24-2023 ambulatory [facility] Work Phone: Start: 02-24-2023 End: 02-24-2023 Patient encounter procedure [facility] Work Phone: Start: 06-27-2022 End: 06-27-2022 ambulatory [facility] Work Phone: Start: 06-27-2022 End: 06-27-2022 Patient encounter procedure [facility] Start: 03-05-2022 End: 03-05-2022 ambulatory [facility] Work Phone: Start: 03-05-2022 End: 03-05-2022 Patient encounter procedure [facility] Start: 01-09-2022 End: 01-09-2022 Patient encounter procedure [facility], Specimen Start: 11-29-2021 End: 11-29-2021 Patient encounter procedure [facility] Start: 08-19-2021 End: 08-19-2021 Patient encounter procedure [facility] Procedures Date Procedure Procedure Detail Performing Clinician Start: 07-10-2016 End: 07-10-2016 Dietary management education, guidance, and counseling Ashia Mcfarland Start: 06-12-2016 End: 06-12-2016 Follow Up Appt 2 weeks Christin Trevino MD Work Phone: Start: 06-12-2016 Laparoscopic cholecystectomy S/P laparoscopic cholecystectomy Ashia Mcfarland Start: 05-15-2016 End: 05-15-2016 *Hepatic Function Panel Shekhar Castle MD Work Phone: Start: 05-15-2016 End: 10-30-2016 SEDRICKN Shekhar Castle MD Work Phone: Start: 05-15-2016 [...] 05-16-2016 *Hepatic Function Panel *Hepatic Function Panel [facility] Work Phone: Start: 05-15-2017 End: 05-16-2016 Lipid panel [AGGREGATE] *Lipid Profile CC PCP [facility] Work Phone: Start: 11-11-2016 End: 11-11-2016 Appointment Appointment [facility] Work Phone: Start: 11-11-2016 End: 11-11-2016 RANDA TOLENTINO [facility] Work Phone: Start: 11-11-2016 End: 11-11-2016 Follow Up Appt 1 year Follow Up Appt 1 year [facility] Work Phone: Start: 07-10-2016 End: 07-10-2016 Follow-up visit Follow Up as needed [facility] Group Work Phone: Start: 07-10-2016 End: 07-10-2016 Primary Care Physician Primary Care Physician Amanuel Mo MD, [facility], [address], [place], [address] [facility] Work Phone: Start: 06-26-2016 End: 06-26-2016 Follow Up Appt 2 weeks Follow Up Appt 2 weeks [facility] Work Phone: Start: 06-26-2016 End: 08-01-2016 Primary Care Physician Primary Care Physician Amanuel Mo MD, [facility], [address], [place], [address] [facility] Work Phone: Start: 06-12-2016 End: 06-12-2016 Follow Up Appt 2 weeks Follow Up Appt 2 weeks [facility] Work Phone: Start: 05-15-2016 End: 05-15-2016 *Hepatic Function Panel *Hepatic Function Panel [facility] Work Phone: Start: 05-15-2016 End: 10-30-2016 RANDA TOLENTINO [facility] Work Phone: Start: 05-15-2016 End: 10-30-2016 Follow Up Appt 6 months Follow Up Appt 6 months [facility] Work Phone: Start: 05-15-2016 End: 05-15-2016 Lipid panel [AGGREGATE] *Lipid Profile CC PCP [facility] Work Phone: Start: 05-15-2016 End: 05-15-2016 Stress Echocardiogram (treadmill) Stress Echocardiogram (treadmill) [facility] Work Phone: Start: 05-07-2016 End: 05-12-2016 *CBC with Differential *CBC with Differential [facility] Work Phone: Start: 05-06-2016 End: 05-07-2016 *Hepatic Function Panel *Hepatic Function Panel [facility] Work Phone: Start: 05-06-2016 End: 05-06-2016 Follow Up Appt Other Follow Up Appt Other [facility] Work Phone: Patient Education HEART%20HEALTHY%20DIET [facility] Work Phone: Payers Date Payer Category Payer Private Health Insurance [id number] Self-pay [id number] 2014 [id number] 1970 Unknown [id number] Unknown [id number] Unknown [id number] [id number] Unknown [id number] Unknown [id number] [id number] [id number] Social History Date Type Detail Facility Start: 07-10-2021 End: 07-10-2021 Tobacco smoking status NHIS Unknown if ever smoked [facility] Start: 1970 Sex Assigned At Male [facility] Start: 07-10-2021 Tobacco smoking stat us NHIS Never smoked tobacco (finding) [facility] Evaluation note Note Date & Type Note Facility Evaluation note No assessment information availa ble [facility] Work Phone: Reason for referral (narrative) Note Date & Type Note Facility Reason for referral (narrative) No reason for referral information available [facility] Work Phone: Family History No Family History Records Found Relationship Condition Age at Onset Recorded Date/T brian father Cardiac disease Unknown Malignant neoplasm Unknown mother Diabetes mellitus Unknown Advance Directives No Advanced Directives Records Found Advance Directive Response Recorded Date/ Time Advance Directives Yes May 2:48pm Living Will No May 02 4:42pm Power of Creel Selector No May 02, 2021 4:42pm Advance Directive Response Recorded Date/ Time Advance Directives Yes May 1:48pm Living Will No May 02 3:42pm Power of Creel Selector No May 02, 2021 3:42pm Advance Directive Response Recorded Date/ Time Advance Directives Yes May 2:48pm Chief Complaint and Reason for Visit Chief Complaint RT LEG Summary Purpose Additional Source Comments Goals (unrecognized section and content) Goals may be documented in a n alternate sectionGoals may be documented in an alternate sectionGoals may be documented in an alternate sectionGoals may be documented in an alternate sectionGoals may be documented in an alternate sectionGoals may be documented in an alternate sectionGoals may be documented in an alternate sectionGoals may be documented in an alternate sectionGoals may be documented in an alternate sectionGoals may be documented in an alternate section Care Teams (unrecognized sec tion and content) Team Status: Active Member Role Status Dates Dr. Amanuel Aguilar MD Family Provider Active Dr. Amanuel Aguilar MD Primary Care Provider Active Team Status: Inactive Member Role Status Dates Dr. Amanuel Aguilar MD Primary Care Provider Active Dr. Benny [place] DO Attending Provider, Referring Provider Active Team Status: Inactive Member Role Status Dates Dr. Amanuel Aguilar MD Primary Care Provi scott, Attending Provider, Referring Provider Active Team Status: Active Member Role Status Dates Dr. Amanuel Aguilar MD Primary Care Provider, Referring Provider Active Dr. Delta Clifton MD Attending Provider Active Team Status: Inactive Member Role Status Dates Dr. Amanuel Aguilar MD Primary Care Provider Active Start: October 25, 2024 End: October 25, 2024 Dr. Benny [place] DO Attending Provider Active Start: October 25, 2024 End: October 25, 2024 Dr. Benny [place] DO Referring Provider Active Start: October 25, 2024 End: October 25, 2024 (unrecognized sect ion and content) No Status Records FoundNo Status Records Found INFORMATION SOURCE (unrecogn ized section and content) DATE CREATED AUTHOR 08/16/2024 [facility] DATE CREATED AUTHOR AUTHOR'S MYA LOZANO 10/31/2024 [facility] FOR RECORDS PERTAINING TO PATIENTS WHO ARE [...] BE BASED ON THE PRIMARY CLINICAL RECORDS. [facility]. provides no warranty or guarantee of the accuracy or completeness of information in this document.
[2025-01-31 07:32] LABS: AST(SGOT) 36 U/L (<=37); Alanine Aminotransfer ALT/SGPT 60 U/L (<=46); Albumin, Serum 4.2 g/dL (3.5-5.0); Alkaline Phosphatase 83 U/L (40-129); Anion Gap 10 (5-15); BUN 16 mg/dL (4-19); BUN/Creat Ratio 15.6 RATIO (10-20); Calcium,Total 9.3 mg/dL (7.6-11.0); Carbon Dioxide 26.8 mmol/L (21.0-32.0); Chloride 102 mmol/L (98-108); Globulin 2.9 g/dL (2.2-4.2); Glucose 180 mg/dL (70-99); Potassium 4.3 mmol/L (3.3-5.1)
== END | disposition home or self-care (01) ==
LOC: LAB 06:33
PROVIDERS: PCP Family Medicine; Referring Provider Physician Assistant; Visit Provider Physician Assistant
DX: E11.65 Type 2 diabetes mellitus with hyperglycemia (principal)
CPT/HCPCS: 36415; 80053; 83036

== ENCOUNTER → 2025-03-14 | Outpatient (CLI) | payer OTHER, SELFPAY ==
[2025-03-14 13:24] LABS: PSA,Total - Annual Screen 0.87 ng/mL (0.02-4.00)
== END | disposition home or self-care (01) ==
LOC: MFPLAB 09:45
PROVIDERS: PCP Family Medicine
DX: Z12.5 Encounter for screening for malignant neoplasm of prostate (principal)
CPT/HCPCS: 36415; 84153; G0103

== ENCOUNTER → 2025-04-24 | Outpatient (CLI) | payer OTHER, SELFPAY ==
[2025-04-24 17:45] LABS: AST(SGOT) 36 U/L (<=37); Alanine Aminotransfer ALT/SGPT 55 U/L (<=46); Albumin, Serum 4.3 g/dL (3.5-5.0); Alkaline Phosphatase 87 U/L (40-129); Anion Gap 14 (5-15); BUN 20 mg/dL (4-19); BUN/Creat Ratio 17.9 RATIO (10-20); Calcium,Total 9.0 mg/dL (7.6-11.0); Carbon Dioxide 24.5 mmol/L (21.0-32.0); Chloride 102 mmol/L (98-108); Globulin 2.9 g/dL (2.2-4.2); Glucose 146 mg/dL (70-99); Potassium 4.0 mmol/L (3.3-5.1)
== END | disposition home or self-care (01) ==
LOC: LAB 15:47
PROVIDERS: PCP Family Medicine; Referring Provider Nurse Practitioner Adult Health; Visit Provider Nurse Practitioner Adult Health
DX: E11.65 Type 2 diabetes mellitus with hyperglycemia (principal)
CPT/HCPCS: 36415; 80053; 83036